=== PATIENT | female | born 1960 | race Caucasian/White ===

== ENCOUNTER 2023-09-08 07:30 | Outpatient (RCR) | payer OTHER, SELFPAY | END 2024-01-06 23:59 | disposition home or self-care (01) | PROVIDERS: PCP Family Medicine; Visit Provider Family Medicine | DX: M54.42 Lumbago with sciatica, left side (principal); M79.18 Myalgia, other site; M25.552 Pain in left hip; R26.89 Other abnormalities of gait and mobility; G47.9 Sleep disorder, unspecified; Z51.89 Encounter for other specified aftercare | CPT/HCPCS: 97110; 97162 ==

== ENCOUNTER 2024-04-13 14:41 | Inpatient (IN) | payer OTHER, SELFPAY ==
[2024-04-13] VITALS (19 sets, daily range): BP systolic 119–154; BP diastolic 53–85; PULSE 66–86; RESP 16–24; TEMP 37.1–38.7; O2SAT 88–96; BMI 57.2; BMI 25.9
--- NOTE | 2024-04-13 15:20 | CRLHL7_ITS ---
For Patients: As a result of the Cures Act, medical imaging exams and procedure reports are released immediately into your electronic medical record. You may view this report before your referring provider. If you have questions, please contact your health care provider. Indication: COUGH, SHORTNESS OF BREATH Technique: PA and lateral views of the chest. Comparison: None. Findings: Low lung volumes. Normal cardiomediastinal silhouette. No focal consolidation, pleural effusions, or visualized pneumothorax. Moderate degenerative changes of the visualized spine. Impression: No acute cardiopulmonary disease. Dictated by Nick Yao MD @ 04/13/2024 4:09:58 PM (Electronically Signed)
[2024-04-13] MEDS: ACETAMINOPHEN 500 MG TABLET 1000 MG PO (15:23)
--- NOTE | 2024-04-13 15:57 | ED_ITS ---
HPI - General Adult General Date Seen: 04/13/24 Chief complaint: Cough Stated complaint: cough, doc thinks she needs oxygen Time Seen by Provider: 04/13/24 15:55 History of Present Illness HPI narrative: 64 yo F with history of hypertension, chronic systolic CHF, morbid obesity, status post gastric bypass, hypothyroidism, colon polyp Mets, anemia, anxiety, depression, sleep apnea presents to the ER today with cough. We do not have any old records for her in the [facility] system but there are records through the [facility] care link. According to those records med list includes atorvastatin, carvedilol, vitamin B12, levothyroxine, losartan, Zoloft, spironolactone, vitamin C. She is not on any anticoagulants. She uses CPAP. She says that she has apparently had not been manage her blood pressure very well but then last fall seeing her primary who put her on blood pressure medications and referred her to a ultrasound tech in the [facility] for further cardiac testing. She apparently had an echocardiogram and some sort of scan of her heart that looked ?better than the ultrasound tech thought they would. ?. She was recommended to follow-up with her PCP for ongoing blood pressure management. She says she really does not like to go to doctors so did not make the appointment. She probably should have seen her doctor in December but now has an appointment scheduled for the end of March. Patient admits that she delay the follow-up herself. She actually developed a respiratory illness in mid to late February, the week before Pablo that include cough, nasal congestion, and purulent eye discharge. She saw an eye doctor and was put on antibiotic eyedrops for 2 weeks. That illness had gotten better. She developed a new illness that started 3 or 4 days ago, this weekend that including cough, fever and chills, shortness of breath, dyspnea on exertion. She went into her primary care office, at [facility], today and was sent here to the ER because she was found to be hypoxic. She is not normally on oxygen at home. She quit smoking 17 years ago. She has no history of lung disease or COPD. She is supposed to use CPAP at night but does not. She is not on home oxygen. She has not had any recent travel or immobilization. No so new swelling in her legs. She does have some chronic bilateral lower extremity edema that is not worse than normal lately. She is not anticoagulated. From cardiology notes from December 2023 Oxygen sat 95% room air. Blood pressure 145/82. Pulse 77. Weight 166.4 kg. PET IMPRESSION 1. Adequate pharmacologic stress test with regadenoson. 2. The pharmacologic stress ECG was nondiagnostic due to nonspecific ST-T changes at baseline. 3. Myocardial perfusion was normal. 4. Stress myocardial blood flow was abnormal at 1.9 ml/min/g and myocardial flow reserve was abnormal at 1.9. 5. Left ventricular cavity size was mildly enlarged (resting EDV 188 ml). 6. Overall left ventricular systolic function was normal without wall motion abnormalities. The resting LVEF was calculated to be 59 %. 7. Compared to prior study of 03/28/14, there is no significant change. ? ? Impression and Plan: ? #1 nonischemic cardiomyopathy #2 CHF, chronic, combined, [place] heart 2 Related Data Home Medications ?Medication ?Instructions ?Recorded ?Confirmed atorvastatin 20 mg tablet 20 mg PO DAILY 04/13/24 04/13/24 carvedilol 3.125 mg tablet 3.125 mg PO BID 04/13/24 04/13/24 carvedilol 6.25 mg tablet 6.25 mg PO BID 04/13/24 04/13/24 chlorthalidone 25 mg tablet 25 mg PO DAILY 04/13/24 04/13/24 cyanocobalamin (vitamin B-12) mcg IM 04/13/24 1,000 mcg/mL injection solution levothyroxine 150 mcg tablet 150 mcg PO DAILY 04/13/24 04/13/24 (Synthroid) lisinopril 20 mg tablet 20 mg PO DAILY 04/13/24 04/13/24 losartan 50 mg tablet 75 mg PO DAILY 04/13/24 04/13/24 sertraline 100 mg tablet 100 mg PO DAILY 04/13/24 04/13/24 spironolactone 25 mg tablet 25 mg PO DAILY 04/13/24 04/13/24 tobramycin 0.3 %-dexamethasone 0.1 drp ophthalmic (eye) 04/13/24 % eye drops,suspension Allergies Allergy/AdvReac Type Severity Reaction Status Date / Time NSAIDS (Non-Steroidal Allergy Mild Abdominal Verified 04/13/24 15:12 Anti-Inflamma Pain PFSH PFSH Social History Smoking Status: Former smoker What tobacco products do you use: cigarettes Smoking quit date/years: >15 years ago Do you use any of these nicotine containing products: None Second hand tobacco smoke exposure: No How often do you have a drink containing alcohol: never AUDIT-C Alcohol total score: 0 Non-prescribed substance use: denies use service: No Exam Narrative: Exam Narrative: Constitutional: Appears well-developed and over-nourished. Alert. Sitting up in her bedside chair. Breathing easily on nasal cannula with sats at 93. Conversant. Non toxic. HENT: Head: Atraumatic. Nose: Nose normal. Mouth/Throat: Oral mucosa is clear and moist. no trismus. Pharynx normal. Tonsils symmetric. No tonsillar enlargement, erythema, or exudate. Eyes: Conjunctivae normal. EOM normal. Pupils equal, round, and reactive to lig ht. No scleral icterus. Neck: Normal range of motion. Neck supple. No tracheal deviation present. Cardiovascular: Normal rate, regular rhythm. No gallop. No friction rub. No murmur heard. Symmetric radial artery pulses Pulmonary/Chest: Effort normal. No stridor. No respiratory distress. No wheezes. No rales. No rhonchi . No tenderness. Abdominal: Exam limited because she is sitting up and very difficult for her to reposition due to her body habitus Musculoskeletal: RUE: Normal range of motion. No tenderness. No deformity LUE: Normal range of motion. No tenderness. No deformity RLE: Normal range of motion. No edema. No tenderness. No deformity LLE: Normal range of motion. No edema. No tenderness. No deformity Neurological: Alert and oriented to person, place, and time. Normal strength. CN II-VII intact. No sensory deficit. GCS eye subscore is 4. GCS verbal subscore is 5. GCS motor subscore is 6. Normal coordination Skin: Skin is warm and dry. No rash noted. No pallor. Normal capillary refill. Psychiatric: Normal mood. Normal affect. Const: Vital Signs, click to edit/add: Vital Signs - 24 hr 04/13/24 15:06 Temperature 101.7 F H Pulse Rate [Pulse Oximeter] 85 Respiratory Rate 24 Blood Pressure [Ri ght Upper Arm] 154/72 H Pulse Oximetry 88 Oxygen Delivery Me thod Room Air Course Vital Signs Vital signs: Initial Vital Signs Temperature 101.7 F H 04/13/24 15:06 Temperature Source Temporal Artery Scan 04/13/24 15:06 Pulse Rate 85 04/13/24 15:06 Pulse Rhythm Regular 04/13/24 15:06 Respiratory Rate 24 04/13/24 15:06 Blood Pressure 154/72 H 04/13/24 15:06 Blood Pressure Mean 99 04/13/24 15:06 Blood Pressure Position Sitting 04/13/24 15:06 Pulse Oximetry 88 04/13/24 15:06 Oxygen Delivery Method Room Air 04/13/24 15:06 Vital Signs Temperature 101.7 F H 04/13/24 15:06 Pulse Rate 85 04/13/24 15:06 Respiratory Rate 24 04/13/24 15:06 Blood Pressure 154/72 H 04/13/24 15:06 Pulse Oximetry 88 04/13/24 15:06 Oxygen Delivery Method Room Air 04/13/24 15:06 Temperature 101.7 F H 04/13/24 15:06 Pulse Rate 85 04/13/24 15:06 Respiratory Rate 24 04/13/24 15:06 Blood Pressure 154/72 H 04/13/24 15:06 Pulse Oximetry 88 04/13/24 15:06 Oxygen Delivery Method Room Air 04/13/24 15:06 Medications Administered Medications: Discontinued Medications Generic Name Dose Route Start Last Admin Trade Name Aric PRN Reason Stop Dose Admin Acetaminophen 1,000 mg 04/13/24 15:16 04/13/24 15:23 Acetaminophen 500 Mg Tablet PO 04/13/24 15:17 1,000 mg ONCE ONE Administration Dexamethasone 6 mg 04/13/24 17:59 04/13/24 18:09 Dexamethasone 4 Mg/Ml Vial IV 04/13/24 18:00 6 mg ONCE ONE Administration Medical Decision Making [facility] Narrative Medical decision making narrative: Today pleasant 64-year-old female presenting to the ER today from her primary care clinic because of hypoxia. She has actually been sick with cough and body aches and fever for the past couple of days. Symptoms began on Thursday so she is currently on day 4 of illness Differential here is broad. PCR is positive for coronavirus, which is likely the source of her illness. She has had previous COVID vaccines, but did not get her booster this fall. She has never had diagnosed COVID before. Unclear where she was exposed to COVID. Possibly it when she visited the [place] last week. Suspect that her hypoxia is likely related to coronavirus and velázquez. She will require hospitalization for oxygen therapy. Fortunately sats of, nicely on nasal cannula. At this point she is not requiring high-flow, positive pressure, or endotracheal intubation. Will start on Decadron for hypoxia induced by coronavirus infection. She is on day 4 of illness. Discussed possible Paxlovid with admitting hospitalist, but at this point they feel that it is probably not beneficial or indicated. I would agree. Chest x-ray is negative for any focal consolidation to suggest a bacterial pneumonia. She is not having any new fluid retention to suggest CHF exacerbation. No recent travel or immobilization or unilateral leg swelling suggest DVT. At this point would hold off on CT scan of her lungs given very low likelihood for PE Laboratory workup shows normal white count, mild anemia with a hemoglobin 11.8. VBG shows a normal pH but a pCO2 elevated at 62 suggesting that she is probably a chronic CO2 retaining patient. Blood pressure is stable. Venous lactic is normal. No evidence for sepsis at this point. Basic metabolic profile shows normal electrolytes, normal kidney function. EKG shows no ischemia. She is having dyspnea on exertion which is likely due to COVID but not having any chest pain. Screening troponin is normal at 0.02.. Discussed with hospitalist, Mavis who graciously accepts the patient for admission to the medical floor Lab Data Labs: Lab Results 04/13/24 04/13/24 Range/Units 17:06 Unknown WBC 5.11 (4.50-11.00) K/uL RBC 4.24 (4.00-5.20) m/uL Hgb 11.8 L (12.0-16.0) gm/dL Hct 38.4 (33.0-51.0) % MCV 91 (80-100) fL MCH 28 (26-34) pg MCHC 31 L (32-36) gm/dL RDW Coeff of [place] 15.8 H (11.5-15.5) % Plt Count 132 L (140-440) K/uL Neut % (Auto) 75.5 H (42.0-72.0) % Lymph % (Auto) 12.5 L (20-44) % Wilkes % (Auto) 10.2 (0.0-11.0) % Eos % (Auto) 1.2 (0.0-7.0) % Baso % (Auto) 0.4 (0.0-3.0) % Neut # (Auto) 3.90 (1.7-7.0) K/uL Lymph # (Auto) 0.60 L (0.90-2.90) K/uL Wilkes # (Auto) 0.50 (0.00-0.90) K/UL Eos # (Auto) 0.06 (0.00-0.50) K/uL Baso # (Auto) 0.02 (0.00-0.30) K/uL Abs Immat Gran (auto) 0.01 (0.00-0.30) K/uL Imm/Tot Granulo (auto) 0.2 % VBG pH 7.371 (7.32-7.43) VBG pCO2 62 H* (40-50) mmHG VBG pO2 51.4 H (25-47) mmHG VBG HCO3 36 H (21-28) mmol/L Sodium 138 (135-149) mmol/L Potassium 3.9 (3.6-5.1) mmol/L Chloride 100 (96-114) mmol/L Carbon Dioxide 37 H (20-32) mmol/L Anion Gap 1 L (7-15) mEq/L BUN 14 (7-30) mg/dL Creatinine 0.7 (0.5-1.5) mg/dL Estimated Creat Clear 55.27 Estimated GFR 97 ml/min Glucose 95 (60-115) mg/dL Lactate 0.5 (0.5-1.9) mmol/L Calcium 8.5 (8.4-10.6) mg/dL Troponin I 0.02 (0.01-0.04) ng/mL SARS-CoV-2 (PCR) POSITIVE SARS-CoV-2 A (Negative) Influenza Type A (PCR) Negative PCR FLU A (Negative) Influenza Type B (PCR) Negative PCR FLU B (Negative) RSV (PCR) Negative PCR RSV (Negative) Imaging Data Chest x-ray: Attestation: I have reviewed the pertinent imaging results. Radiologist's impression: Impression: No acute cardiopulmonary disease. ECG Data Attestation: I personally reviewed and interpreted this ECG as follows: Interpretation: Normal sinus rhythm with marked sinus arrhythmia Rate: 74 PA: 158 QRS axis: Right axis deviation. ST segment/T wave: T-wave flattening. No ST segment elevation or depression QTc: 428 Discharge Plan Discharge Clinical Impression: COVID-19, Hypoxia Patient Disposition: Admitted As Observation
[2024-04-13 16:14] LABS: PCR FLU A Negative PCR FLU A (Negative); PCR FLU B Negative PCR FLU B (Negative); PCR RSV Negative PCR RSV (Negative); SARS PCR* POSITIVE SARS-CoV-2 (Negative)
[2024-04-13 17:19] LABS: HCO3 VBG 36 mmol/L (21-28); Lactate* 0.5 mmol/L (0.5-1.9); PO2 VBG 51.4 mmHG (25-47); pH VBG 7.371 (7.32-7.43)
[2024-04-13 17:22] LABS: Basophils Absolute Auto 0.02 K/uL (0.00-0.30); Basophils Percent Auto 0.4 % (0.0-3.0); Eosinophils Absolute Auto 0.06 K/uL (0.00-0.50); Eosinophils Percent Auto 1.2 % (0.0-7.0); Hematocrit 38.4 % (33.0-51.0); Hemoglobin* 11.8 gm/dL (12.0-16.0); Immature Granulocytes Abs Auto 0.01 K/uL (0.00-0.30); Immature Granulocytes Pct Auto 0.2 %; Lymphocytes Percent Auto 12.5 % (20-44); Mean Corpuscular HGB Conc 31 gm/dL (32-36); Mean Corpuscular Hemoglobin 28 pg (26-34); Mean Corpuscular Volume 91 fL (80-100); Monocytes Percent Auto 10.2 % (0.0-11.0); Neutrophils Percent Auto 75.5 % (42.0-72.0); Platelet Count* 132 K/uL (140-440); RDW Coefficient of Variation % 15.8 % (11.5-15.5); Red Blood Count 4.24 m/uL (4.00-5.20); White Blood Count* 5.11 K/uL (4.50-11.00)
[2024-04-13 17:38] LABS: Slide Review Reflex No
[2024-04-13 17:42] LABS: PCO2 VBG 62 mmHG (40-50)
[2024-04-13 17:56] LABS: Chloride* 100 mmol/L (96-114); Potassium* 3.9 mmol/L (3.6-5.1); Sodium* 138 mmol/L (135-149)
--- OUTSIDE RECORDS SUMMARY | 2024-04-13 17:57 | XMS_ITS | Clinical Summary ---
Author Organization [facility] Address [place], [place] [address] Care Team Providers [employer] Driver Name Role Phone CliffPatricia castro MD Primary Care Provider Allergies Active Allergy Reactions Criticality Noted Date Comments Lisinopril Cough 10/07/2023 Nsaids (Non-Steroidal Anti-Inflammatory Drug) Other - Describe In Comment Field 08/15/2008 Pt had gastric bypass surgery, should not take oral NSAIDS. Medications CENTRUM 0.4 MG-162 MG-18 MG TAB twice daily 0 8 Active CITRACAL + D ORAL Take up to 2000 mg daily in divided doses Active VITRON-C 200 mg (66 mg Iron)-125 mg Tab TAKE 2 TABLETS BY MOUTH ONCE DAILY. 60 tablet 11 2 Active CPAPIndications:OS A (obstructive sleep apnea) Heated humidifier, Humidifier chamber, Full face mask with cushion, Heated tubing, Headgear, [id number], Length of Need: 99 months,daily use 1 unit 7 Active levothyroxine (SYNTHROID) 150 mcg tabletIndications: Acquired hypothyroidism Take 1 Tablet (150 mcg) by mouth once daily. 90 Tablet 3 4 Active atorvastatin (LIPITOR) 20 mg tabletIndications: Other hyperlipidemia Take 1 Tablet (20 mg) by mouth once daily. 90 Tablet 3 4 Active sertraline (ZOLOFT) 100 mg tabletIndications: Anxiety state Take 1 Tablet (100 mg) by mouth once daily. 90 Tablet 3 4 Active spironolactone (ALDACTONE) 25 mg tabletIndications: Chronic systolic CHF (congestive heart failure) (HC) Take 1 Tablet (25 mg) by mouth once daily in the morning. 90 Tablet 3 4 Active carvediloL (COREG) 6.25 mg tabletIndications: HTN (hypertension) Take 1 Tablet (6.25 mg) by mouth two times daily. 90 Tablet 3 4 Active losartan (COZAAR) 50 mg tabletIndications: HTN (hypertension),Chr onic systolic CHF (congestive heart failure) (HC) Take 1.5 Tablets (75 mg) by mouth once daily. 90 Tablet 3 4 Active cyanocobalamin (VITAMIN B12) 1,000 mcg/mL injectionIndicatio ns:S/P gastric bypass INJECT 1 ML UNDER THE SKIN EVERY 4 WEEKS (MONTHLY) 3 mL 1 4 Active Hospital, Clinic, or Other Facility Administered Medication Ordered Dose Route Frequency Start Date End Date Status cyanocobalamin (VITAMIN B12) 1,000 mcg/mL injection 1,000 mcgIndications:B12 deficiency 1000 mcg IM Q 4 WEEKS (28 days) 06/08/2020 Active Active Problems Problem Noted Date Diagnosed Date HTN (hypertension) 01/05/2024 Chronic systolic CHF (congestive heart failure) 01/05/2024 Anterior dislocation of left shoulder 12/21/2020 Traumatic rotator cuff tear, left, subsequent en counter 12/21/2020 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, 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 Hyperplastic colon polyp 04/19/2012 Overview (04/19/2012): Colonoscopy 03/2012 polyp repeat in 10 years S/P gastric bypass 09/25/2008 Iron deficiency anemia secon gudelia to inadequate dietary iron intake 08/10/2007 Unspecified sleep apnea 07/16/2006 Overview (07/16/2006): uses [id number] Anxiety state, unspecified 07/16/2006 Morbid obesity with BMI of 50.0-59.9, adult 06/28 Major depressive disorder, recurrent episode, un specified Hypothyroidism Resolved Problems Problem Noted Date Diagnosed Date Resolved Date Depressive disorder, not elsewhere classified 07/17/19 07 08/09/2007 abnormal pap 07/16/2006 08/07/2006 Overview (07/16/2006): abnormal papsmear had cryo Encounters Date Type Department Care Team Description 04/13/2024 1:50 PM WATER [employer]ER Office Visit [facility] [address] [place] [address] Mat Dumont MD URI (cough, congestion); Shortness Of Breath 04/13/2024 Travel 03/07/2024 Refill [facility] [address] [place] [address] Patricia Coronado MD Refill Request (Cyanocobalamin) from Last 3 Months Immunizations Name Administration Dates Next Due COVID-19 vaccine (Moderna 100mcg/0.5mL) SHASHANK GROVES 08/28/2020 COVID-19 vaccine (Pfizer-Bio NTech 30mcg/0.3mL) 12YO+ MARTITA-SUCROSE SHASHANK GROVES 09/02/2021 Influenza, IIV3 (Age >=3 years) 03/07/2013 Influenza, IIV4 04/28/2019, 8,04/09/2015,2013 Pneumococcal Conj 20-valent (Prevnar 20) 09/17/2023 Td (Age >=7 Years) 12/16/1995 Td, Preservative Free (age > = 7 Years) 04/09/2015 Tdap 10/27/2005 Zoster (Shingrix-RZV, recombinant) 06/08/2020, Family History Medical History Relation Name Comments Rectal cancer Father Cancer-breast Maternal Grandmother age 60 Hypertension Mother Diabetes Other none Heart Disease Paternal Grandfather age 76 Relation Name Status Comments Brother Alive x3 Daughter (Age at ) Father Maternal Grandmother Mother Alive Other Paternal Grandfather Sister Alive x2 Son Alive x2 Social History Tobacco Use Types Packs/Day Years Used Date Smoking Tobacco: Former Cigarettes 1 25 1 04/16/1980 - 02/14/2006 Smokeless Tobacco: Never Tobacco Cessation:Counseling Given: Yes Alcohol Use Standard Drinks/Week Comments No 0 (1 standard drink = 0.6 oz pur e alcohol) PHQ-2 Answer Date Recorded PHQ-2 TOTAL SCORE 2 07/17/2023 Social Connections Answer Date Recorded Do you often feel lonely or isolated from those around you? 0 07/17/2023 Financial Resource Strain Answer Date R ecorded Difficulty of Paying Living Expenses 3 07/17/2023 Difficulty of Paying Living Expenses Not on file 07/17/2023 Food Insecurity Answer Date Recorded Do you worry your food will run out before you are able to buy more? 1 07/17/2023 Transportation Needs Answer Date Record ed Does lack of transportation keep you from medica l appointments? 1 07/17/2023 Does lack of transportation keep you from work, meetings or getting things that you need? 1 07/17/2023 Housing Stability Answer Date Recorded What is your housing situation today? 1 07/17/2023 Utilities Answer Date Recorded Do you have trouble paying f or utilities (for example, heat, electricity, water, phone)? 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 Not on file Not on file Obstetrics History Last Filed Vital Signs Vital Sign Reading Time Taken Comments Blood Pressure 176/84 04/13/2024 1:56 PM WATER HAULER Pulse 87 04/13/2024 1:49 PM WATER HA[employer]ER Temperature 36.5 C (97.7 F) 03/01/2018 8:58 AM WATER HAULER Respiratory Rate 14 04/12/2014 2:18 PM WATER HAULER Oxygen Saturation 86% 04/13/2024 1:56 PM WATER HA[employer]ER Inhaled Oxygen Concentration - - Weight 165.9 kg (365 lb 11.2 oz) 04/13/2024 1:49 PM WATER HAULER Height 167.6 cm (5' 6) 07/17/2023 2:57 PM CDT Body Mass Index 59.03 07/17/2023 2:57 PM CDT Plan of Treatment Upcoming Encounters Date Type Department Care Team (Late st Contact Info) Description 04/25/2024 12:10 PM WATER HAULER Office Visit [facility] [address] [place] [address] Patricia Coronado MD [address] [place] [address] Health Maintenance Due Date Last Done Comments RSV vaccine for adults or (1 - Risk 60-74 years 1-dose series) 2020 Colonoscopy through age 75 04/16/202204/16, 04/16/2012, 04/16/2012 COVID-19 vaccine series ( season) 2023 09/02/2021, 09/25/2020, 08/28/2020 Influenza for age 50-64 11/29/2023 04/28/19, 03/01/2018, 04/09/2015, Additional history exists BMI (ht and wt on same day) for age 18+ 07/16/2024 07/17/2023, 09/02/2021, 02/11/2021, Additional history exists Depression screening for age 12+ 07/16/2024 07/17/2023, 09/02/2021, 06/08/2020, Additional history exists Mammogram for age 45-75 07/20/2024 07/21/19 24, 10/03/2021, 06/08/2020, Additional history exists Tetanus booster 04/09/2025 04/09/2015, 09/29, 12/16/1995 Pap test for age 21-65 06/08/2025 , 06/08/2020, 04/09/2015, Additional history exists Lipids for age 45-75 07/16/2028 07/17/2023, 09/02/2021, 06/08/2020, Additional history exists Tdap Completed 10/27/2005 HIV for age 15-65 Completed 08/11/2006 Hepatitis C screening for ag e 18-79 Completed 03/10/2014, 08/11/2006 Zoster (shingles) series for age 50+ Completed 06/08/2020, 04/28/2019 Pneumococcal series for age 50+ Completed 4 Medical Devices Implanted Type Area Epic Director Device Identifier Shelf Expiration Date Model / Serial / Lot [id number] 2x12mm [[id number]] Implanted:Qty: 1 on 08/11/[address] [facility] Explanted:at [facility] (Quantity not on file) Stomach [employer] [id number]# / [id number] / Procedures Procedure Name Priority Date/Time Associated Diagnosis Comments XR MAMMO BILAT SCREENING Routine 07/21/2023 7:45 AM CDT Visit for screening mammogram LIPID PANEL W REFLEX MEASURED LDL Routine 07/17/2023 3:40 PM CDT Other hyperlipidemia BISCUIT MAKER THIN PREP PAP SCREEN IMAGED Routine 06/08/2020 8:15 AM WATER [employer]ULER Screening for cervical cancer ANTI HCV Routine 03/10/2014 8:53 AM WATER HAULER Need for hepatitis C screening test EXPOSURE (BBF) RAPID HIV STAT 08/11/2006 9:58 AM CDT from Last 3 Months or Most Recently Relevant to Health Maintenance Results * XR MAMMO BILAT SCREENING (07/21/2023 7:45 AM CDT) Anatomical Region Laterality Modality BREASTS, Breast Left, Breast Right Bilateral Mammography Impressions 07/21/2023 1:53 PM CDT There is no radiographic evidence for malignancy. Recommend annual mammograms. MAMMOGRAM ASSESSMENT: ACR 1 Negative PATIENTS: You will also receive a letter with your examination results in an easy to read format. If you have questions about your results, please contact your referring provider. Narrative 07/21/2023 1:53 PM CDT For Patients: As a result of the 21st Century Cures Act, medical imaging exams and procedure reports are released immediately into your electronic medical record. You may view this report before your referring provider. If you have questions, please contact your health care provider. XR MAMMO BILAT SCREENING [[id number]] CLINICAL HISTORY: This is an asymptomatic 63 y.o. patient. INDICATION FOR EXAM: Mammogram Screening. TECHNIQUE: CC & MLO views were obtained. This study was evaluated with the assistance of Computer-Aided Detection. COMPARISON FILM: Yes 10/03/21 [facility] 06/08/20 [facility] FINDINGS: The breasts have scattered areas of fibroglandular density. There are no dominant masses, suspicious micro calcifications or areas of architectural distortion. Patricia Coronado MD MAMMO Final R esult * LIPID PANEL W REFLEX MEASURED LDL (07/17/2023 3:40 PM CDT) CHOLESTEROL,TOTAL 189 100 - 199 mg/dL 07/17/2023 9:05 PM CDT [facility] Comment: Cholesterol, Total Reference Ranges Desirable <200 mg/dL Borderline 200-239 mg/dL High >=240 mg/dL TRIGLYCERIDES 104 <150 mg/dL 07/17/2023 9:05 PM CDT [facility] HDL CHOLESTEROL 67 >40 mg/dL 9:05 PM CDT [facility] NON-HDL CHOLESTEROL 122 <145 mg/dl 07/17/2023 9:05 PM CDT [facility] CHOL/HDL RATIO 2.82 <4.50 07/17/2023 9:05 PM CDT [facility] LDL CHOLESTEROL 101 <=130 mg/dL 07/17/2023 9:05 PM CDT [facility] VLDL CHOLESTEROL 21 <=30 mg/dL 07/17/2023 9:05 PM CDT [facility] PROVIDER ORDERED STATUS RANDOM 07/17/2023 9:05 PM CDT [facility] Blood BLOOD SPECIMEN / Unknown Venipuncture / Unknown 07/17/2023 3:40 PM CDT 07/17/2023 3:41 PM CDT Patricia Coronado MD CHEMISTRY Final R esult [facility] [address] [place] [address], [place] * BISCUIT MAKER THIN PREP PAP SCREEN IMAGED [[id number]] (06/08/2020 8:15 AM WATER HAULER) Case Report Gynecologic Cytology Report Case: [id number] Authorizing Provider: Patricia Coronado MD Collected: 06/08/2020 0815 Ordering Location: [facility] Received: 06/08/2020 0852 Clinic First Screen: [place] Specimen: BISCUIT MAKER ThinPrep Vial Screening, Cervical 06/19/2020 8:28 AM CDT [facility] INTERPRETATION/ RESULT NEGATIVE FOR INTRAEPITHELIAL LESION OR MALIGNANCY (NIL) (none) 06/19/2020 8:28 AM CDT [facility] IMEN ADEQUACY Satisfactory for evaluation Endocervical component present 06/19/2020 8:28 AM CDT [facility] HPV REQUEST HPV and PAP 06/19/2020 8:28 AM CDT [facility] Date of LMP 201306/19/2020 8:28 AM CDT [facility] Last Pap Date 04/09/15 06/19/2020 8:28 AM CDT [facility] Last Pap Result NIL 8:28 AM CDT [facility] Abnormal Pap or [place] Bx in last 5 years No 06/19/2020 8:28 AM CDT [facility] Menstrual Status Postmenopausal 06/19/2020 8:28 AM CDT [facility] [place] Bx Done Today No 06/19/2020 8:28 AM CDT [facility] Additional Information None given 06/19/2020 8:28 AM CDT [facility] Comment: Cytology is screened at [facility] [email or web address], Central Laboratory - [address], [place] [address] and [facility] - [address] [place] [address] and [facility] - [address], [place] [address] Interpreted at [facility] [email or web address], Central Laboratory - [address], [place] [address] Automated Review Successful 06/19/2020 8:28 AM CDT [facility] Comment:Specimen processed s uccessfully by automated claim auditor device, ThinPrep Imaging System, [employer] ANCILLARY TESTING BISCUIT MAKER HPV Ordered, Please see separate report 06/19/2020 8:28 AM CDT [facility] Note The pap test is a screening technique, not a diagnostic procedure. It is used primarily to screen for squamous cancers and precursor lesions. Published studies have shown that it is subject to both false negative and false positive results. The pap test should not be used as the sole means to diagnose or exclude pre-malignant and malignant lesions. 06/19/2020 8:28 AM CDT [facility] Other (Cervical) Non-Blood / Unknown 06/08/2020 8:15 AM WATER [employer]ULER 06/08/2020 8:52 AM WATER HAULER us Patricia Coronado MD PATHOLOGY/CYTOLOGY Peace l Result Performing Organization Address City/[facility]/ZIP Co de Phone Number [facility] [address] [place] [address], [place] * ANTI HCV [[id number]] (03/10/2014 8:53 AM WATER HAULER) Pathologist [facility] HEPATITIS C ANTIBODY Non-Reacti ve Non-Reacti ve 03/10/2014 1:50 PM WATER HAULER [facility] Blood specimen (specimen) BLOOD SPECIMEN / Unknown Venipuncture / Unknown 03/10/2014 8:53 AM WATER [employer]ULER 03/10/2014 8:53 AM WATER HAULER Narrative [facility] - 03/10/2014 1:50 PM WATER HAULER Antibodies to HCV not detected; does not exclude the possibility of exposure to HCV. us Patricia Coronado MD SEND OUTS Final R esult [facility] [address] [place] [address], [place] * PATIENT SOURCE RAPID HIV (08/11/2006 9:58 AM CDT) SOURCE RAPID HIV SCREEN Nonreactive (Nonreact mayank) [facility] Blood specimen (specimen) BLOOD SPECIMEN / Unknown 08/11/2006 9:58 AM CDT 08/11/2006 8:37 AM CDT us Dallin Márquez MD SEND OUTS Final Res ult [facility] [place]NAL ZIP [id number] [address] from Last 3 Months or Most Recently Relevant to Health Maintenance Insurance [facility] Advance Directives Documents on File Type Date Recorded Patient Hydraulic Press Tender Expl anation Healthcare Directive 08/14/2006 * Full Code (Latest Code Status on File) Date Activated Date Inactivated Comments 08/11/2006 5:35 AM 08/12/2006 4:44 PM Care Teams [employer] Driver Relationship Specialty Start Date End Date Patricia Coronado MD [address] [place] [id number] PCP - General Family Practice 11/05/10
[2024-04-13 17:59] LABS: Anion Gap 1 mEq/L (7-15); Blood Urea Nitrogen* 14 mg/dL (7-30); Carbon Dioxide* 37 mmol/L (20-32); Creatinine* 0.7 mg/dL (0.5-1.5); Est. Creatinine Clearance* 55.27; Estimated Glomerular Filt Rate 97 ml/min
[2024-04-13 18:00] LABS: Calcium* 8.5 mg/dL (8.4-10.6); Glucose* 95 mg/dL (60-115)
[2024-04-13] MEDS: dexAMETHasone 4 MG/ML VIAL 6 MG IV (18:09)
[2024-04-13 18:11] LABS: Troponin I* 0.02 ng/mL (0.01-0.04)
[2024-04-13 19:32] LABS: Albumin* 3.8 g/dL (3.3-5.0)
--- NOTE | 2024-04-13 19:33 | PC.NURSE ---
Performed admission: Patient arrived to floor at 1846. Patient vitally stable on 1.5 L oxygen nasal cannula with sats in low 90s. Patient denies pain and independent in room. No physical assessment performed, handed off to next RN.
[2024-04-13 19:35] LABS: Aspartate Amino Transferase* 22 U/L (12-35); Bilirubin Direct* 0.2 mg/dL (0.0-0.5); Bilirubin Total* 0.4 mg/dL (0.1-1.5); Magnesium* 2.3 mg/dL (1.5-2.6); Total Protein* 6.5 g/dL (6.0-8.3)
[2024-04-13 19:36] LABS: Alanine Aminotransferase* 15 U/L (4-35); Alkaline Phosphatase* 76 U/L (40-150)
[2024-04-13 19:38] LABS: C Reactive Protein* 2.6 mg/dL (0.5-1.0)
--- NOTE | 2024-04-13 19:44 | PM.IMHP1 ---
Hospitalist- H&P: HPI History of Present Illness Date Seen: 04/13/24 Chief complaint: cough, doc thinks she needs oxygen Narrative: Sarah Chadwick is a 64 year old female past medical history significant for obesity, nonischemic cardiomyopathy, chronic systolic heart failure, dyspnea on exertion, hypothyroidism, iron deficiency anemia, anxiety, depression is admitted to the medical floor from the ED with acute hypoxic respiratory failure with hypercapnia in setting of acute COVID infection. Patient reports symptom onset 3 days ago. Has had a dry cough. Denies chest pain or tightness. Increasing shortness of breath. Chronically has some level of dyspnea on exertion which he has noticed to worsened. Is not oxygen dependent at home. Does have a history of sleep apnea but has not tolerated CPAP in the past. Uses a walker when walking around the home. Denies headache or dizziness currently. Fever up to 101.3? today. Denies abdominal pain, nausea, vomiting. Has irregular bowels, unchanged. Denies urinary symptoms. Primary care provider is Dr. Annika Coronado. Patient is a full code. Review of Systems Narrative: REVIEW OF SYSTEMS: Complete review of systems performed and negative unless otherwise stated in HPI or below. [facility] Medical History (Updated 04/13/24 @ 20:12 by Blanca Bettencourt PA-C) Combined systolic and diastolic heart failure, NYHA class 2 ?I50.40 - Unspecified combined systolic (congestive) and diastolic (congestive) heart failure (ICD-10) Nonischemic cardiomyopathy ?I42.8 - Other cardiomyopathies (ICD-10) Sleep apnea ?G47.30 - Sleep apnea, unspecified (ICD-10) Major depressive disorder ?F32.9 - Major depressive disorder, single episode, unspecified (ICD-10) Anxiety ?F41.9 - Anxiety disorder, unspecified (ICD-10) Iron deficiency anemia ?D50.9 - Iron deficiency anemia, unspecified (ICD-10) Hypothyroidism ?E03.9 - Hypothyroidism, unspecified (ICD-10) Morbid obesity with body mass index of 50 or higher ?E66.01 - Morbid (severe) obesity due to excess calories (ICD-10) Chronic systolic heart failure ?I50.22 - Chronic systolic (congestive) heart failure (ICD-10) Hypertension ?I10 - Essential (primary) hypertension (ICD-10) Surgical History History of gastric bypass ?Z98.84 - Bariatric surgery status (ICD-10) Social History What is your current living situation?: I presently have a place to live Problems where you live: no known problems Problems where you live details: none In the past 12 months, utilities in danger of being shut off: no In past 12 months, lack of transportation kept you from medical appts, meetings, work, or getting things needed for daily living: no In the past 12 mos, have been you worried that your food would run out before you had money to buy more?: never true In the past 12 mos, the food you bought just didn't last and you didn't have money to buy more?: never true Highest level of school completed/degree received: high school graduate Smoking Status: Former smoker What tobacco products do you use: cigarettes Smoking quit date/years: >15 years ago Do you use any of these nicotine containing products: None Second hand tobacco smoke exposure: No How often do you have a drink containing alcohol: never AUDIT-C Alcohol total score: 0 Non-prescribed substance use: denies use Caffeine: Yes How often does anyone, including family, friends and others, physically hurt you: never How often does anyone, including family, friends and others, insult or talk down to you: never How often does anyone, including family, friends and others, threaten you with harm: never How often does anyone, including family, friends and others, scream or curse at you: never service: No Meds Home Medications and Allergies Home Medications ?Medication ?Instructions ?Recorded ?Confirmed ?Type atorvastatin 20 mg tablet 20 mg PO DAILY 04/13/24 04/13/24 History carvedilol 3.125 mg tablet 3.125 mg PO BID 04/13/24 04/13/24 History carvedilol 6.25 mg tablet 6.25 mg PO BID 04/13/24 04/13/24 History chlorthalidone 25 mg tablet 25 mg PO DAILY 04/13/24 04/13/24 History cyanocobalamin (vitamin B-12) mcg IM 04/13/24 History 1,000 mcg/mL injection solution levothyroxine 150 mcg tablet 150 mcg PO DAILY 04/13/24 04/13/24 History (Synthroid) lisinopril 20 mg tablet 20 mg PO DAILY 04/13/24 04/13/24 History losartan 50 mg tablet 75 mg PO DAILY 04/13/24 04/13/24 History sertraline 100 mg tablet 100 mg PO DAILY 04/13/24 04/13/24 History spironolactone 25 mg tablet 25 mg PO DAILY 04/13/24 04/13/24 History tobramycin 0.3 %-dexamethasone 0.1 drp ophthalmic (eye) 04/13/24 History % eye drops,suspension Allergies Allergy/AdvReac Type Severity Reaction Status Date / Time NSAIDS (Non-Steroidal Allergy Mild Abdominal Verified 04/13/24 15:12 Anti-Inflamma Pain Exam Narrative: Exam Narrative: PHYSICAL EXAM General: Pleasant, conversant, NAD HEENT: Normocephalic, atraumatic, sclera white, EOMI, oral mucosa moist Cardiovascular: RRR, S1S2. +1 pitting edema Pulmonary: Mildly diminished bilaterally without rhonchi, rales, expiratory wheezes. No dyspnea on 1 L Abdominal: Soft, obese, nondistended, NTTP Neurological: Alert, answering questions appropriately, cranial nerves intact, no focal findings Extremities: No gross joint deformity or swelling. AROMI. Neurovascularly intact Skin: Warm, dry. Const: Vital Signs, click to edit/add: Vital Signs - 24 hr 04/13/24 15:06 04/13/24 16:30 04/13/24 16:31 Temperature 101.7 F H Pulse Rate 81 80 Pulse Rate [Pulse Oximeter] 85 Respiratory Rate 24 Blood Pressure 136/68 Blood Pressure [Le ft FA] Blood Pressure [Ri ght Upper Arm] 154/72 H Pulse Oximetry 88 92 93 Oxygen Delivery Me thod Room Air Oxygen Flow Rate 04/13/24 16:45 04/13/24 17:00 04/13/24 17:02 Temperature Pulse Rate 75 74 73 Pulse Rate [Pulse Oximeter] Respiratory Rate Blood Pressure 128/72 Blood Pressure [Le ft FA] Blood Pressure [Ri ght Upper Arm] Pulse Oximetry 95 95 96 Oxygen Delivery Me thod Oxygen Flow Rate 04/13/24 17:15 04/13/24 17:30 04/13/24 17:31 Temperature Pulse Rate 72 73 73 Pulse Rate [Pulse Oximeter] Respiratory Rate Blood Pressure 119/71 Blood Pressure [Le ft FA] Blood Pressure [Ri ght Upper Arm] Pulse Oximetry 94 94 95 Oxygen Delivery Me thod Oxygen Flow Rate 04/13/24 17:46 04/13/24 18:00 04/13/24 18:01 Temperature Pulse Rate 66 77 81 Pulse Rate [Pulse Oximeter] Respiratory Rate Blood Pressure 125/79 Blood Pressure [Le ft FA] Blood Pressure [Ri ght Upper Arm] Pulse Oximetry 95 96 94 Oxygen Delivery Me thod Oxygen Flow Rate 04/13/24 18:15 04/13/24 18:30 04/13/24 18:31 Temperature Pulse Rate 70 78 86 Pulse Rate [Pulse Oximeter] Respiratory Rate Blood Pressure 128/85 Blood Pressure [Le ft FA] Blood Pressure [Ri ght Upper Arm] Pulse Oximetry 96 94 91 Oxygen Delivery Me thod Oxygen Flow Rate 04/13/24 18:51 04/13/24 19:01 04/13/24 19:01 Temperature 98.9 F Pulse Rate Pulse Rate [Pulse Oximeter] 68 Respiratory Rate 16 Blood Pressure Blood Pressure [Le ft FA] 131/69 Blood Pressure [Ri ght Upper Arm] Pulse Oximetry 90 90 90 Oxygen Delivery Me thod Room Air Nasal Cannula Oxygen Flow Rate 1 Hospitalist - H&P: Result Labs Labs: Short CBC 04/13/24 Range/Units 17:06 WBC 5.11 (4.50-11.00) K/uL Hgb 11.8 L (12.0-16.0) gm/dL Hct 38.4 (33.0-51.0) % Plt Count 132 L (140-440) K/uL BMP 04/13/24 17:06 Sodium 138 Potassium 3.9 Chloride 100 Carbon Dioxide 37 H BUN 14 Creatinine 0.7 Glucose 95 Calcium 8.5 Cardiac Enzymes 04/13/24 Range/Units 17:06 Troponin I 0.02 (0.01-0.04) ng/mL Liver Function 04/13/24 Range/Units 17:06 Total Bilirubin 0.4 (0.1-1.5) mg/dL Direct Bilirubin 0.2 (0.0-0.5) mg/dL AST 22 (12-35) U/L ALT 15 (4-35) U/L Alkaline Phosphatase 76 (40-150) U/L Albumin 3.8 (3.3-5.0) g/dL Imaging Chest x-ray: Attestation: I have reviewed the pertinent imaging results. Radiologist's impression: Low lung volumes. Normal cardiomediastinal silhouette. No focal consolidation, pleural effusions, or visualized pneumothorax. Moderate degenerative changes of the visualized spine. Impression: No acute cardiopulmonary disease. Assessment and Plan Assessment and plan (1) Acute hypoxic respiratory failure: Problem comment: -with hypercapnia -oxygen saturation 88% on room air in ED -in setting of acute COVID infection, obesity, history of dyspnea on exertion, combined heart failure, suspect likely some level of CO2 retainer historically -VBG pH 7.371, pCO2 62, PO2 51, HC03 36. Serum CO2 chronically 33-36. Recheck VBG in a.m. -oxygen supplementation to maintain saturations > 90%, weaning as able -incentive spirometry, aerobika -RT for pulmonary support Status: Acute (2) COVID-19: Problem comment: -symptomatic 3 days, dry cough, fever 101.3 today, weakness -hypoxic, requiring O2 supplementation -no leukocytosis, lactate 0.5, Mag 2.3 -dexamethasone and remdesivir (LFTs unremarkable), Mucinex -RT for pulmonary support -PT/OT consults for weakness Status: Acute (3) Combined systolic and diastolic heart failure, NYHA class 2: Problem comment: Chronic, combined, [place] heart 2 per cardiology -continue spironolactone -add BNP -will give one time dose Lasix 40mg IV now. Reassess if need for further IV diuresis. 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 Adequate pharmacologic stress test with regadenoson. 2. The pharmacologic stress ECG was nondiagnostic due to nonspecific ST-T changes at baseline. 3. Myocardial perfusion was normal. 4. Stress myocardial blood flow was abnormal at 1.9 ml/min/g and myocardial flow reserve was abnormal at 1.9. 5. Left ventricular cavity size was mildly enlarged (resting EDV 188 ml). 6. Overall left ventricular systolic function was normal without wall motion abnormalities. The resting LVEF was calculated to be 59 %. 7. Compared to prior study of 03/28/14, there is no significant change. TTE 08/19/2023 Final Impressions: 1. Technically limited exam. 2. Normal left ventricular size, mildly increased wall thickness, mildly reduced global systolic function, calculated EF of 41 %. 3. Right ventricular cavity size is normal, global systolic RV function is normal. 4. No hemodynamically significant valve disease detected. 5. The ascending aorta is dilated with a maximal diameter of 4.2 cm. 6. Echo contrast was administered to enhance visualization of all left ventricular segments. Followed by [facility] Status: Acute (4) Nonischemic cardiomyopathy: Problem comment: -echo as above, followed by [facility] Status: Acute (5) Hypertension: Problem comment: -continue carvedilol and Cozaar Status: Acute (6) Hypothyroidism: Problem comment: -continue levothyroxine, previous TSH 2.6 Status: Acute (7) Iron deficiency anemia: Problem comment: -hemoglobin 11.8, baseline 12.3-13.2, monitor Status: Acute (8) Anxiety: Problem comment: -continue Zoloft Status: Acute (9) Major depressive disorder: Problem comment: -continue Zoloft Status: Acute (10) Sleep apnea: Problem comment: -does not tolerate CPAP Status: Acute (11) Morbid obesity with body mass index of 50 or higher: Problem comment: -noted Status: Acute Total Time Spent Total Time Spent: Total time spent caring for the patient today was 75 minutes. This includes time spent for the visit reviewing the chart, time spent during the visit, time spent after the visit and documentation and planning in coordination of care.
[2024-04-13 20:55] LABS: NT Pro B Type NatriureticPept* 167 pg/mL
[2024-04-13] MEDS: FUROSEMIDE 10 MG/ML inj 40 MG IVP (20:59)
[2024-04-13] MEDS: SODIUM CHLORIDE 0.9 % (FLUSH) 10 ML SYRINGE 5 ML IVF (21:00)
[2024-04-13] MEDS: ENOXAPARIN 40 MG/0.4 ML INJ SUBCUT (21:47)
[2024-04-13] MEDS: carvediloL 6.25 MG TABLET PO (21:48)
[2024-04-13] MEDS: ATORVASTATIN 10 MG TABLET 20 MG PO (21:48)
[2024-04-13] MEDS: guaiFENesin 600 MG TAB.ER.12H 1200 MG PO (21:48)
[2024-04-13] MEDS: SPIRONOLACTONE 25 MG TABLET PO (21:49)
[2024-04-13] MEDS: SERTRALINE 100 MG TABLET PO (21:49)
[2024-04-13] MEDS: LOSARTAN POTASSIUM 50 MG TABLET 75 MG PO (21:49)
[2024-04-14] VITALS (9 sets, daily range): BP systolic 133–170; BP diastolic 53–94; PULSE 62–76; RESP 16–20; TEMP 36.6–36.9; O2SAT 88–97
[2024-04-14 06:34] LABS: HCO3 VBG 41 mmol/L (21-28); PO2 VBG < 30.1 mmHG (25-47); pH VBG 7.345 (7.32-7.43)
[2024-04-14 06:41] LABS: PCO2 VBG 76 mmHG (40-50)
[2024-04-14 06:44] LABS: Hematocrit 40.4 % (33.0-51.0); Hemoglobin* 12.2 gm/dL (12.0-16.0); Mean Corpuscular HGB Conc 30 gm/dL (32-36); Mean Corpuscular Hemoglobin 28 pg (26-34); Mean Corpuscular Volume 92 fL (80-100); Platelet Count* 127 K/uL (140-440); White Blood Count* 4.16 K/uL (4.50-11.00)
[2024-04-14 06:47] LABS: Slide Review Reflex No
[2024-04-14] MEDS: LEVOTHYROXINE 75 MCG TABLET 150 MCG PO (06:51)
[2024-04-14] MEDS: ALBUTEROL SULFATE 2.5 MG/3 ML VIAL.NEB NEB (06:53)
[2024-04-14 07:07] LABS: Chloride* 98 mmol/L (96-114); Potassium* 4.8 mmol/L (3.6-5.1); Sodium* 141 mmol/L (135-149)
[2024-04-14 07:10] LABS: Blood Urea Nitrogen* 16 mg/dL (7-30); Creatinine* 0.9 mg/dL (0.5-1.5); Est. Creatinine Clearance* 55.27; Estimated Glomerular Filt Rate 71 ml/min
[2024-04-14 07:11] LABS: Calcium* 8.7 mg/dL (8.4-10.6); Glucose* 111 mg/dL (60-115)
[2024-04-14 07:13] LABS: C Reactive Protein* 4.1 mg/dL (0.5-1.0)
[2024-04-14 07:17] LABS: Anion Gap 3 mEq/L (7-15); Carbon Dioxide* 40 mmol/L (20-32)
--- NOTE | 2024-04-14 07:34 | PC.NURSE ---
Pt alert and oriented x3. Afebrile. Pt denies pain, chest pain, SOB, and N/V. Pt was on 1L via nasal cannula at start of shift, titrated O2 down to 0.5 pt maintaining 90% and higher. Pt using IS, has PRN nebs. Pt's posterior lung sounds are diminished with expiatory wheezes. Pt has dry intermittent cough. Pt is up ad pretty in room, voiding, tolerating a regular diet.
[2024-04-14] MEDS: dexAMETHasone 2 MG TABLET 6 MG PO (09:21)
[2024-04-14] MEDS: guaiFENesin 600 MG TAB.ER.12H 1200 MG PO ×2 (09:21→21:45)
[2024-04-14] MEDS: carvediloL 6.25 MG TABLET PO ×2 (09:21→21:44)
[2024-04-14] MEDS: 0.9 % SODIUM CHLORIDE 250 ml IV (10:18)
[2024-04-14] MEDS: SODIUM CHLORIDE 0.9 % (FLUSH) 10 ML SYRINGE 5 ML IVF ×2 (10:19→21:46)
--- NOTE | 2024-04-14 11:01 | P.IMPN_ITS ---
Progress Note: A&P Assessment and plan (1) Acute hypoxic respiratory failure: Problem details: -in setting of acute COVID infection, obesity, HFpEF, untreated AURY -CO2 remains elevated, appreciate input from RT, continue to follow VBGs -oxygen supplementation, monitor closely given CO2 retention -incentive spirometry, aerobika -RT for pulmonary support Status: Acute (2) COVID-19: Problem details: -symptomatic for 3days prior to admission, dry cough, fever 101.3 today, weakness -no leukocytosis, lactate 0.5, Mag 2.3 -COVID-specific therapies: dexamethasone and remdesivir (LFTs unremarkable), Mucinex -RT for pulmonary support -PT/OT consults for weakness Status: Acute (3) Combined systolic and diastolic heart failure, NYHA class 2: Problem details: - Chronic, combined, [place] heart 2 per cardiology - continue spironolactone, Losartan, Carvedilol - BNP wnl - given one time dose Lasix 40mg IV on admission PET 12/08/2023 IMPRESSION 1. Adequate pharmacologic stress test with regadenoson. 2. The pharmacologic stress ECG was nondiagnostic due to nonspecific ST-T changes at baseline. 3. Myocardial perfusion was normal. 4. Stress myocardial blood flow was abnormal at 1.9 ml/min/g and myocardial flow reserve was abnormal at 1.9. 5. Left ventricular cavity size was mildly enlarged (resting EDV 188 ml). 6. Overall left ventricular systolic function was normal without wall motion abnormalities. The resting LVEF was calculated to be 59 %. 7. Compared to prior study of 03/28/14, there is no significant change. TTE 08/19/2023 Final Impressions: 1. Technically limited exam. 2. Normal left ventricular size, mildly increased wall thickness, mildly reduced global systolic function, calculated EF of 41 %. 3. Right ventricular cavity size is normal, global systolic RV function is normal. 4. No hemodynamically significant valve disease detected. 5. The ascending aorta is dilated with a maximal diameter of 4.2 cm. 6. Echo contrast was administered to enhance visualization of all left ventricular segments. Followed by [facility] Status: Acute (4) Hypertension: Problem details: -continue carvedilol and Cozaar Status: Acute (5) Hypothyroidism: Problem details: -continue levothyroxine, previous TSH 2.6 Status: Acute (6) Iron deficiency anemia: Problem details: -hemoglobin 11.8, baseline 12.3-13.2, monitor Status: Acute (7) Major depressive disorder: Problem details: -continue Zoloft Status: Acute (8) Sleep apnea: Problem details: -does not tolerate CPAP Status: Acute (9) Morbid obesity with body mass index of 50 or higher: Problem details: -noted Status: Acute Plan -per above -RT, OT, and PT consults today -wean supplemental oxygen -home vs SNF in 1-2 days pending clinical course Subjective Date Seen: 04/14/24 Interval history: Sarah was admitted to the hospital last night for acute hypoxic respiratory failure and fever in the setting of acute COVID infection. Comorbidities included untreated AURY (intolerant of CPAP), HFpEF, essential HTN. This morning, Sarah continues to feel weak and dyspneic with exertion, no pain. Amenable to working with RT, PT, and OT today. Lives independently with in [place]. Exam Narrative: Exam Narrative: GEN: Sarah is sitting in bedside chair, appears tired but nontoxic HEENT: EOMIs bilaterally, no scleral icterus CV: RRR, No concerning murmurs R: Decreased bibasilar breath sounds, no wheezing, no rales Ext: 1-2+ BLE edema, chronic/stable per chart review Skin: No concerning skin lesions or rashes on exposed skin Neuro: No focal deficits, no resting tremor Psych: Appropriate Const: Vital Signs, click to edit/add: Vital Signs - 24 hr 04/13/24 15:06 04/13/24 16:30 04/13/24 16:31 Temperature 101.7 F H Pulse Rate 81 80 Pulse Rate [Pulse Oximeter] 85 Respiratory Rate 24 Blood Pressure 136/68 Blood Pressure [Le ft Arm] Blood Pressure [Le ft FA] Blood Pressure [Ri ght Upper Arm] 154/72 H Pulse Oximetry 88 92 93 Oxygen Delivery Me thod Room Air Oxygen Flow Rate 04/13/24 16:45 04/13/24 17:00 04/13/24 17:02 Temperature Pulse Rate 75 74 73 Pulse Rate [Pulse Oximeter] Respiratory Rate Blood Pressure 128/72 Blood Pressure [Le ft Arm] Blood Pressure [Le ft FA] Blood Pressure [Ri ght Upper Arm] Pulse Oximetry 95 95 96 Oxygen Delivery Me thod Oxygen Flow Rate 04/13/24 17:15 04/13/24 17:30 04/13/24 17:31 Temperature Pulse Rate 72 73 73 Pulse Rate [Pulse Oximeter] Respiratory Rate Blood Pressure 119/71 Blood Pressure [Le ft Arm] Blood Pressure [Le ft FA] Blood Pressure [Ri ght Upper Arm] Pulse Oximetry 94 94 95 Oxygen Delivery Me thod Oxygen Flow Rate 04/13/24 17:46 04/13/24 18:00 04/13/24 18:01 Temperature Pulse Rate 66 77 81 Pulse Rate [Pulse Oximeter] Respiratory Rate Blood Pressure 125/79 Blood Pressure [Le ft Arm] Blood Pressure [Le ft FA] Blood Pressure [Ri ght Upper Arm] Pulse Oximetry 95 96 94 Oxygen Delivery Me thod Oxygen Flow Rate 04/13/24 18:15 04/13/24 18:30 04/13/24 18:31 Temperature Pulse Rate 70 78 86 Pulse Rate [Pulse Oximeter] Respiratory Rate Blood Pressure 128/85 Blood Pressure [Le ft Arm] Blood Pressure [Le ft FA] Blood Pressure [Ri ght Upper Arm] Pulse Oximetry 96 94 91 Oxygen Delivery Me thod Oxygen Flow Rate 04/13/24 18:42 04/13/24 18:51 04/13/24 19:00 Temperature 98.9 F 98.8 F Pulse Rate Pulse Rate [Pulse Oximeter] 68 81 Respiratory Rate 16 20 Blood Pressure Blood Pressure [Le ft Arm] Blood Pressure [Le ft FA] 131/69 132/53 L Blood Pressure [Ri ght Upper Arm] Pulse Oximetry 93 90 92 Oxygen Delivery Me thod Nasal Cannula Room Air Nasal Cannula Oxygen Flow Rate 1 1 04/13/24 19:01 04/13/24 19:01 04/14/24 00:16 Temperature 98.2 F Pulse Rate Pulse Rate [Pulse Oximeter] 76 Respiratory Rate 16 Blood Pressure Blood Pressure [Le ft Arm] Blood Pressure [Le ft FA] 133/62 Blood Pressure [Ri ght Upper Arm] Pulse Oximetry 90 90 92 Oxygen Delivery Me thod Nasal Cannula Nasal Cannula Oxygen Flow Rate 1 1 04/14/24 00:16 04/14/24 03:32 04/14/24 08:23 Temperature 98.3 F 98.2 F Pulse Rate Pulse Rate [Pulse Oximeter] 76 73 65 Respiratory Rate 16 16 18 Blood Pressure Blood Pressure [Le ft Arm] Blood Pressure [Le ft FA] 152/81 H 157/79 H Blood Pressure [Ri ght Upper Arm] Pulse Oximetry 93 88 Oxygen Delivery Me thod Nasal Cannula Room Air Oxygen Flow Rate 1 04/14/24 08:23 04/14/24 10:25 04/14/24 10:32 Temperature 97.9 F Pulse Rate Pulse Rate [Pulse Oximeter] 65 67 Respiratory Rate 18 20 Blood Pressure Blood Pressure [Le ft Arm] 136/53 L Blood Pressure [Le ft FA] Blood Pressure [Ri ght Upper Arm] Pulse Oximetry 97 88 Oxygen Delivery Me thod Room Air Nasal Cannula Oxygen Flow Rate 0.5 Labs Labs: Laboratory Results - last 24 hr 04/13/24 04/13/24 04/13/24 17:06 18:57 20:05 WBC 5.11 RBC 4.24 Hgb 11.8 L Hct 38.4 MCV 91 MCH 28 MCHC 31 L RDW Coeff of [place] 15.8 H Plt Count 132 L Neut % (Auto) 75.5 H Lymph % (Auto) 12.5 L [place] % (Auto) 10.2 Eos % (Auto) 1.2 Baso % (Auto) 0.4 Neut # (Auto) 3.90 Lymph # (Auto) 0.60 L [place] # (Auto) 0.50 Eos # (Auto) 0.06 Baso # (Auto) 0.02 Abs Immat Gran (auto) 0.01 Imm/Tot Granulo (auto) 0.2 VBG pH 7.371 VBG pCO2 62 H* VBG pO2 51.4 H VBG HCO3 36 H Sodium 138 Potassium 3.9 Chloride 100 Carbon Dioxide 37 H Anion Gap 1 L BUN 14 Creatinine 0.7 Estimated Creat Clear 55.27 Estimated GFR 97 Glucose 95 Lactate 0.5 Calcium 8.5 Magnesium 2.3 Total Bilirubin 0.4 Direct Bilirubin 0.2 AST 22 ALT 15 Alkaline Phosphatase 76 Troponin I 0.02 C-Reactive Protein 2.6 H NT-Pro-B Natriuret Pep 167 Total Protein 6.5 Albumin 3.8 SARS-CoV-2 (PCR) Influenza Type A (PCR) Influenza Type B (PCR) RSV (PCR) Lab Acknowledgement Test Added Test Added 04/13/24 04/14/24 Unknown 06:15 WBC 4.16 L RBC 4.40 Hgb 12.2 Hct 40.4 MCV 92 MCH 28 MCHC 30 L RDW Coeff of [place] Plt Count 127 L Neut % (Auto) Lymph % (Auto) [place] % (Auto) Eos % (Auto) Baso % (Auto) Neut # (Auto) Lymph # (Auto) [place] # (Auto) Eos # (Auto) Baso # (Auto) Abs Immat Gran (auto) Imm/Tot Granulo (auto) VBG pH 7.345 VBG pCO2 76 H* VBG pO2 < 30.1 VBG HCO3 41 H Sodium 141 Potassium 4.8 Chloride 98 Carbon Dioxide 40 H Anion Gap 3 L BUN 16 Creatinine 0.9 Estimated Creat Clear 55.27 Estimated GFR 71 Glucose 111 Lactate Calcium 8.7 Magnesium Total Bilirubin Direct Bilirubin AST ALT Alkaline Phosphatase Troponin I C-Reactive Protein 4.1 H NT-Pro-B Natriuret Pep Total Protein Albumin SARS-CoV-2 (PCR) POSITIVE SARS-CoV-2 A Influenza Type A (PCR) Negative PCR FLU A Influenza Type B (PCR) Negative PCR FLU B RSV (PCR) Negative PCR RSV Lab Acknowledgement
--- NOTE | 2024-04-14 20:18 | PC.NURSE ---
End of Shift: Patient pleasant and cooperative. Patient vitally stable, lungs diminished, BS WNL, IV SL and intact. Patient is on 1 L NC with sats 88% or above. Patient denies pain, and is independent in room. Patient tolerating regular diet and urinating well. Tele=NSR.
[2024-04-14] MEDS: ENOXAPARIN 40 MG/0.4 ML INJ SUBCUT (21:44)
[2024-04-14] MEDS: SERTRALINE 100 MG TABLET PO (21:44)
[2024-04-14] MEDS: LOSARTAN POTASSIUM 50 MG TABLET 75 MG PO (21:45)
[2024-04-14] MEDS: SPIRONOLACTONE 25 MG TABLET PO (21:45)
[2024-04-14] MEDS: ATORVASTATIN 10 MG TABLET 20 MG PO (23:19)
[2024-04-15 03:00] VITALS: BP 147/87; PULSE 60; RESP 18; TEMP 36.5; O2SAT 93
[2024-04-15] MEDS: LEVOTHYROXINE 75 MCG TABLET 150 MCG PO (05:44)
[2024-04-15 07:00] VITALS: BP 151/71; PULSE 62; PULSE 64; RESP 18; TEMP 36.6; O2SAT 93
[2024-04-15 07:06] LABS: Basophils Absolute Auto 0.01 K/uL (0.00-0.30); Basophils Percent Auto 0.2 % (0.0-3.0); Eosinophils Absolute Auto 0.01 K/uL (0.00-0.50); Eosinophils Percent Auto 0.2 % (0.0-7.0); Hematocrit 39.7 % (33.0-51.0); Immature Granulocytes Abs Auto 0.01 K/uL (0.00-0.30); Immature Granulocytes Pct Auto 0.2 %; Lymphocytes Absolute Auto 1.37 K/uL (0.90-2.90); Lymphocytes Percent Auto 29.7 % (20-44); Mean Corpuscular HGB Conc 30 gm/dL (32-36); Mean Corpuscular Hemoglobin 28 pg (26-34); Mean Corpuscular Volume 92 fL (80-100); Monocytes Percent Auto 10.8 % (0.0-11.0); Neutrophils Absolute Auto 2.72 K/uL (1.7-7.0); Neutrophils Percent Auto 58.9 % (42.0-72.0); Platelet Count* 135 K/uL (140-440); RDW Coefficient of Variation % 15.6 % (11.5-15.5); White Blood Count* 4.62 K/uL (4.50-11.00)
[2024-04-15 07:07] LABS: Slide Review Reflex No
--- NOTE | 2024-04-15 07:38 | PC.NURSE ---
[id number]: Pt AxOx4, cooperative, and pleasant. Pt reported no pain throughout the shift. Pt reported feeling like her SOB has improved with activity. Pt indep in room. Pt using IS independently. Pt remained on 1L NC. Pt tolerating reg fluids well, continent of the bladder. Pt resting watching television with call light in reach.
[2024-04-15 07:39] LABS: Chloride* 100 mmol/L (96-114); Potassium* 4.5 mmol/L (3.6-5.1); Sodium* 142 mmol/L (135-149)
[2024-04-15 07:42] LABS: Creatinine* 0.8 mg/dL (0.5-1.5); Est. Creatinine Clearance* 55.27; Estimated Glomerular Filt Rate 82 ml/min
[2024-04-15 07:43] LABS: Blood Urea Nitrogen* 21 mg/dL (7-30); Calcium* 8.4 mg/dL (8.4-10.6); Glucose* 94 mg/dL (60-115)
[2024-04-15 07:46] LABS: C Reactive Protein* 1.8 mg/dL (0.5-1.0)
[2024-04-15 07:50] LABS: Anion Gap 2 mEq/L (7-15); Carbon Dioxide* 40 mmol/L (20-32)
[2024-04-15 08:58] LABS: HCO3 VBG 41 mmol/L (21-28); Lactate* 0.6 mmol/L (0.5-1.9); PO2 VBG 30.9 mmHG (25-47); pH VBG 7.363 (7.32-7.43)
[2024-04-15 09:03] LABS: PCO2 VBG 72 mmHG (40-50)
[2024-04-15] MEDS: dexAMETHasone 2 MG TABLET 6 MG PO (09:45)
[2024-04-15] MEDS: carvediloL 6.25 MG TABLET PO ×2 (09:46→20:52)
[2024-04-15] MEDS: SODIUM CHLORIDE 0.9 % (FLUSH) 10 ML SYRINGE 5 ML IVF ×2 (09:46→20:53)
[2024-04-15] MEDS: guaiFENesin 600 MG TAB.ER.12H 1200 MG PO ×2 (09:46→20:51)
[2024-04-15 11:00] VITALS: BP 114/45; PULSE 62; RESP 18; TEMP 36.7; O2SAT 90
--- NOTE | 2024-04-15 11:06 | PM.IMPN1 ---
Progress Note: A&P Assessment and plan (1) Acute hypoxic respiratory failure: Problem details: -in setting of acute COVID infection, obesity, HFpEF, untreated AURY 04/15/24 -hypercapnic, CO2 persistently elevated, stable, compensated with pH within normal limits. Appreciate input from RT, continue to follow VBGs -continue oxygen supplementation, monitor closely given CO2 retention -incentive spirometry, aerobika -RT for pulmonary support -continue treatment of covid-19 as below Status: Acute (2) COVID-19: Problem details: -symptomatic for 3days prior to admission, dry cough, fever 101.3 today, weakness -no leukocytosis, lactate 0.5, Mag 2.3 04/15/24 -continue COVID-specific therapies: dexamethasone (day 2) and remdesivir (LFTs unremarkable), (day 2), Mucinex -continue RT for pulmonary support -continue PT/OT consults for weakness Status: Acute (3) Combined systolic and diastolic heart failure, NYHA class 2: Problem details: - Chronic, combined, stable, [place] heart 2 per cardiology - continue spironolactone, Losartan, Carvedilol - BNP wnl - given one time dose Lasix 40mg IV on admission PET 12/08/2023 IMPRESSION 1. Adequate pharmacologic stress test with regadenoson. 2. The pharmacologic stress ECG was nondiagnostic due to nonspecific ST-T changes at baseline. 3. Myocardial perfusion was normal. 4. Stress myocardial blood flow was abnormal at 1.9 ml/min/g and myocardial flow reserve was abnormal at 1.9. 5. Left ventricular cavity size was mildly enlarged (resting EDV 188 ml). 6. Overall left ventricular systolic function was normal without wall motion abnormalities. The resting LVEF was calculated to be 59 %. 7. Compared to prior study of 03/28/14, there is no significant change. TTE 08/19/2023 Final Impressions: 1. Technically limited exam. 2. Normal left ventricular size, mildly increased wall thickness, mildly reduced global systolic function, calculated EF of 41 %. 3. Right ventricular cavity size is normal, global systolic RV function is normal. 4. No hemodynamically significant valve disease detected. 5. The ascending aorta is dilated with a maximal diameter of 4.2 cm. 6. Echo contrast was administered to enhance visualization of all left ventricular segments. Followed by I Status: Chronic (4) Hypertension: Problem details: -continue carvedilol and Cozaar Status: Chronic (5) Hypothyroidism: Problem details: -continue levothyroxine, previous TSH 2.6 Status: Chronic (6) Iron deficiency anemia: Problem details: -hemoglobin 12, stable, baseline 12.3-13.2 Status: Chronic (7) Major depressive disorder: Problem details: -continue Zoloft Status: Chronic (8) Sleep apnea: Problem details: -does not tolerate CPAP Status: Chronic (9) Morbid obesity with body mass index of 50 or higher: Problem details: -noted Status: Chronic Plan -per above -continue RT, OT. Discharged from PT yesterday -continue to wean supplemental oxygen as able; patient was not on oxygen prior to presentation. -disposition:home 1-2 days pending clinical course, weaning off oxygen Time Spent With Patient Total time spent: Today I spent 35 minutes seeing the patient, reviewing Expanse and EPIC notes/diagnostics/labs, discussing the care plan with our care team that includes social work, PT/OT, pharmacy, RT, senior care and documenting my impressions and plan in the medical record. Subjective Time Seen by Provider: 10:45 Date Seen: 04/15/24 Interval history: Georgette notes persistent mild dyspnea with ambulating to the BR. Appetite is good. Denies pain or CP. Exam Narrative: Exam Narrative: General: No acute distress. Awake, alert, oriented. Sitting comfortably in the bedside chair watching TV. No pallor. No jaundice. Oropharynx: Clear. Mucous membranes moist. Cardiovascular: Regular rate and rhythm. No murmurs, gallops, or rubs. Respiratory: Scattered rhonchi. No wheezes or crackles. Abdomen: Bowel sounds present. Soft, nondistended, nontender. Extremities: 2+ bilateral lower extremity nonpitting edema; soft, appears chronic. Const: Vital Signs, click to edit/add: Vital Signs - 24 hr 04/14/24 14:43 04/14/24 14:59 04/14/24 19:00 Temperature 98.1 F Pulse Rate [Pulse Oximeter] 62 62 Respiratory Rate 16 16 Blood Pressure [Le ft Arm] 150/85 H Pulse Oximetry 88 93 Oxygen Delivery Me thod Room Air Nasal Can nula Oxygen Flow Rate 1 04/14/24 19:00 04/14/24 23:00 04/14/24 23:00 Temperature 98.3 F 98.4 F Pulse Rate [Pulse Oximeter] 72 67 Respiratory Rate 18 16 18 Blood Pressure [Le ft Arm] 161/61 H 170/94 H Pulse Oximetry 93 90 Oxygen Delivery Me thod Nasal Cannula Nasal Cannula Oxygen Flow Rate 1 1 04/15/24 03:00 Temperature 97.7 F Pulse Rate [Pulse Oximeter] 60 Respiratory Rate 18 Blood Pressure [Le ft Arm] 147/87 H Pulse Oximetry 93 Oxygen Delivery Me thod Nasal Cannula Oxygen Flow Rate 1 Labs Labs: Laboratory Results - last 24 hr 04/15/24 04/15/24 06:32 08:48 WBC 4.62 RBC 4.30 Hgb 12.0 Hct 39.7 MCV 92 MCH 28 MCHC 30 L RDW Coeff of [place] 15.6 H Plt Count 135 L Neut % (Auto) 58.9 Lymph % (Auto) 29.7 Harrison % (Auto) 10.8 Eos % (Auto) 0.2 Baso % (Auto) 0.2 Neut # (Auto) 2.72 Lymph # (Auto) 1.37 Harrison # (Auto) 0.50 Eos # (Auto) 0.01 Baso # (Auto) 0.01 Abs Immat Gran (auto) 0.01 Imm/Tot Granulo (auto) 0.2 VBG pH 7.363 VBG pCO2 72 H* VBG pO2 30.9 VBG HCO3 41 H Sodium 142 Potassium 4.5 Chloride 100 Carbon Dioxide 40 H Anion Gap 2 L BUN 21 Creatinine 0.8 Estimated Creat Clear 55.27 Estimated GFR 82 Glucose 94 Lactate 0.6 Calcium 8.4 C-Reactive Protein 1.8 H
[2024-04-15 15:00] VITALS: BP 147/80; PULSE 64; RESP 18; TEMP 36.6; O2SAT 93
[2024-04-15 19:00] VITALS: BP 143/80; PULSE 68; RESP 18; TEMP 36.8; O2SAT 95; O2SAT 96
--- NOTE | 2024-04-15 20:14 | PC.NURSE ---
Pt alert, oriented and vitally stable. Pt on 1L O2 intermittently throughout shift. Pt and staff attempted times on RA though pt stated feeling SOB after some time. O2 sats remained above 88. IS and areobika in use. Pt on regular diet and up ind, tolerates well. Pt up in chair, call light within reach.
[2024-04-15] MEDS: ATORVASTATIN 10 MG TABLET 20 MG PO (20:50)
[2024-04-15] MEDS: SPIRONOLACTONE 25 MG TABLET PO (20:51)
[2024-04-15] MEDS: SERTRALINE 100 MG TABLET PO (20:51)
[2024-04-15] MEDS: LOSARTAN POTASSIUM 50 MG TABLET 75 MG PO (20:52)
[2024-04-15] MEDS: ENOXAPARIN 40 MG/0.4 ML INJ SUBCUT (20:54)
[2024-04-15 23:00] VITALS: BP 140/60; PULSE 72; RESP 20; TEMP 36.7; O2SAT 93
[2024-04-16 03:00] VITALS: BP 145/76; PULSE 63; TEMP 36.6; O2SAT 97
[2024-04-16] MEDS: LEVOTHYROXINE 75 MCG TABLET 150 MCG PO (06:49)
[2024-04-16 07:00] VITALS: BP 122/74; PULSE 68; RESP 16; RESP 20; TEMP 36.6; O2SAT 93
[2024-04-16 07:25] LABS: Hematocrit 39.5 % (33.0-51.0); Hemoglobin* 11.8 gm/dL (12.0-16.0); Mean Corpuscular HGB Conc 30 gm/dL (32-36); Mean Corpuscular Hemoglobin 27 pg (26-34); Mean Corpuscular Volume 92 fL (80-100); Platelet Count* 144 K/uL (140-440); Red Blood Count 4.31 m/uL (4.00-5.20); White Blood Count* 5.59 K/uL (4.50-11.00)
[2024-04-16 07:27] LABS: Chloride* 101 mmol/L (96-114); Potassium* 4.1 mmol/L (3.6-5.1); Sodium* 142 mmol/L (135-149)
[2024-04-16 07:30] LABS: Anion Gap 2 mEq/L (7-15); Blood Urea Nitrogen* 23 mg/dL (7-30); Carbon Dioxide* 39 mmol/L (20-32); Creatinine* 0.7 mg/dL (0.5-1.5); Est. Creatinine Clearance* 55.27; Estimated Glomerular Filt Rate 97 ml/min
[2024-04-16 07:31] LABS: Calcium* 8.5 mg/dL (8.4-10.6); Glucose* 95 mg/dL (60-115)
[2024-04-16 07:53] LABS: Slide Review Reflex No
--- NOTE | 2024-04-16 08:37 | PC.NURSE ---
Shift note (1030-8029): Patient pleasant alert and oriented. Independent with ambulation. O2 sats 93-97% on 1 LPM. Took shower at HS. Denied any SOB when showering. C/O abdominal pain rated 5/10 from coughing; declined PRN pain medications when offered.?
[2024-04-16 09:15] VITALS: RESP 20; O2SAT 90
[2024-04-16] MEDS: dexAMETHasone 2 MG TABLET 6 MG PO (09:19)
[2024-04-16] MEDS: guaiFENesin 600 MG TAB.ER.12H 1200 MG PO (09:20)
[2024-04-16] MEDS: carvediloL 6.25 MG TABLET PO (09:20)
[2024-04-16] MEDS: SODIUM CHLORIDE 0.9 % (FLUSH) 10 ML SYRINGE 5 ML IVF (09:20)
--- NOTE | 2024-04-16 10:41 | RESP.RT ---
Patient was setting up in chair (09:15) on room air, SaO2 88%, IS and PEP done, patient SaO2 increased to 92%, promoted good cough, patient swallows secretions. BBS, Decreased bibasilar breath sounds, no wheezing, no rales noted. Patient used Home CPAP but stopped because of mask leakage was uncomfortable. When she used it she stated felt great the next day. Patiet stated she was making an appointment with primary to have a new sleep study to acquire an new machine with updated settings. We discussed mask styles and new vs older machines.
[2024-04-16 11:00] VITALS: BP 117/74; PULSE 60; RESP 18; TEMP 36.9; O2SAT 89
--- NOTE | 2024-04-16 12:42 | P.DS_ITS ---
DS: Providers Provider Time Seen by Provider: 10:50 Date Seen: 04/16/24 Date of admission: 04/13/24 18:57 Primary care physician: Patricia Coronado MD Admitting Clinician: Monica Nunez MD Consults: 04/13/24 18:57 Consult to Occupational Therapy [CONS] Routine Comment: Reason(s) for OT Consult:: Evaluate and Treat Any Restrictions?:: No Restrictions Consult to Physical Therapy [CONS] Routine Comment: Reason(s) for PT Consult:: Evaluate and Treat Any Restrictions?:: No Restrictions Consult to Respiratory Therapy [CONS] Routine Comment: Reason(s) for RT Consult:: Consult Attending Physician on discharge: Nery Montano MD Date of Discharge: 04/16/24 DS: Diagnosis Discharge Diagnosis (1) Acute hypoxic respiratory failure: Status: Resolved Problem details: -in setting of acute COVID infection, obesity, HFpEF, untreated AURY 04/15/24 -hypercapnic, CO2 persistently elevated, stable, compensated with pH within normal limits. Appreciate input from RT, continue to follow VBGs -continue oxygen supplementation, monitor closely given CO2 retention -incentive spirometry, aerobika -RT for pulmonary support -continue treatment of covid-19 as below 04/16/24 - hypoxia resolved. Dyspnea improved. D/c home today - recommended f/u with disability specialist to restart using CPAP for known AURY (2) COVID-19: Status: Acute Problem details: -symptomatic for 3days prior to admission, dry cough, fever 101.3 today, weakness -no leukocytosis, lactate 0.5, Mag 2.3 04/15/24 -continue COVID-specific therapies: dexamethasone (day 2) and remdesivir (LFTs unremarkable), (day 2), Mucinex -continue RT for pulmonary support -continue PT/OT consults for weakness 04/16/24 - Hypoxia resolved. Stop dexamethasone and remdesivir (3) Combined systolic and diastolic heart failure, NYHA class 2: Status: Chronic Problem details: - Chronic, combined, stable, [place] heart 2 per cardiology - continue spironolactone, Losartan, Carvedilol - BNP wnl - given one time dose Lasix 40mg IV on admission PET 12/08/2023 IMPRESSION 1. Adequate pharmacologic stress test with regadenoson. 2. The pharmacologic stress ECG was nondiagnostic due to nonspecific ST-T changes at baseline. 3. Myocardial perfusion was normal. 4. Stress myocardial blood flow was abnormal at 1.9 ml/min/g and myocardial flow reserve was abnormal at 1.9. 5. Left ventricular cavity size was mildly enlarged (resting EDV 188 ml). 6. Overall left ventricular systolic function was normal without wall motion abnormalities. The resting LVEF was calculated to be 59 %. 7. Compared to prior study of 03/28/14, there is no significant change. TTE 08/19/2023 Final Impressions: 1. Technically limited exam. 2. Normal left ventricular size, mildly increased wall thickness, mildly reduced global systolic function, calculated EF of 41 %. 3. Right ventricular cavity size is normal, global systolic RV function is normal. 4. No hemodynamically significant valve disease detected. 5. The ascending aorta is dilated with a maximal diameter of 4.2 cm. 6. Echo contrast was administered to enhance visualization of all left ventricular segments. Followed by I (4) Hypertension: Status: Chronic Problem details: -continue carvedilol and Cozaar (5) Hypothyroidism: Status: Chronic Problem details: -continue levothyroxine, previous TSH 2.6 (6) Iron deficiency anemia: Status: Chronic Problem details: -hemoglobin 11.8, stable, baseline 12.3-13.2 (7) Major depressive disorder: Status: Chronic Problem details: -continue Zoloft (8) Sleep apnea: Status: Chronic Problem details: -does not tolerate CPAP, return to outpatient sleep clinic to restart use of CPAP (9) Morbid obesity with body mass index of 50 or higher: Status: Chronic Problem details: -noted DS: Summary Hospital Course Hospital Course: Per H&P: Sarah Chadwick is a 64 year old female past medical history significant for obesity, nonischemic cardiomyopathy, chronic systolic heart failure, dyspnea on exertion, hypothyroidism, iron deficiency anemia, anxiety, depression is admitted to the medical floor from the ED with acute hypoxic respiratory failure with hypercapnia in setting of acute COVID infection. Patient reports symptom onset 3 days ago. Has had a dry cough. Denies chest pain or tightness. Increasing shortness of breath. Chronically has some level of dyspnea on exertion which he has noticed to worsened. Is not oxygen dependent at home. Does have a history of sleep apnea but has not tolerated CPAP in the past. Uses a walker when walking around the home. Denies headache or dizziness currently. Fever up to 101.3? today. Denies abdominal pain, nausea, vomiting. Has irregular bowels, unchanged. Denies urinary symptoms. Received covid specific therapies (Remdesevir and dexamethasone), RT consult, oxygen via [place]. Has improved and is no longer hypoxic. Hypercapnia compensated. See diagnoses above for full details. Time Spent with Patient Time attestation: Total time spent providing and/or coordinating discharge services: Exam Narrative: Exam Narrative: General: No acute distress. Awake, alert, oriented. Sitting comfortably in the bedside chair napping. No pallor. No jaundice. Oropharynx: Clear. Mucous membranes moist. Cardiovascular: Regular rate and rhythm. No murmurs, gallops, or rubs. Respiratory: Clear to auscultation bilaterally. No wheezes or crackles. Abdomen: Bowel sounds present. Soft, nondistended, nontender. Extremities: 2+ bilateral lower extremity nonpitting edema; soft, unchanged. Const: Vital Signs, click to edit/add: Vital Signs - 24 hr 04/15/24 15:00 04/15/24 15:00 04/15/24 19:00 Temperature 97.8 F 98.2 F Pulse Rate [Pulse Oximeter] 64 64 68 Respiratory Rate 18 18 18 Blood Pressure [Le ft Arm] 147/80 H 143/80 H Blood Pressure [Ri ght Arm] Pulse Oximetry 93 96 Oxygen Delivery Me thod Nasal Cannula Nasal Cannula Oxygen Flow Rate 1 1 04/15/24 19:00 04/15/24 23:00 04/16/24 03:00 Temperature 98.1 F 97.8 F Pulse Rate [Pulse Oximeter] 72 63 Respiratory Rate 20 Blood Pressure [Le ft Arm] 140/60 H Blood Pressure [Ri ght Arm] 145/76 H Pulse Oximetry 95 93 97 Oxygen Delivery Me thod Nasal Cannula Nasal Cannula Oxygen Flow Rate 1 1 04/16/24 07:00 04/16/24 07:00 04/16/24 09:15 Temperature 97.9 F Pulse Rate [Pulse Oximeter] 68 68 Respiratory Rate 16 20 20 Blood Pressure [Le ft Arm] 122/74 Blood Pressure [Ri ght Arm] Pulse Oximetry 93 90 Oxygen Delivery Me thod Room Air Room Air Oxygen Flow Rate DS: Data Data Completed and Pending Completed studies during hospitalization: 04/13/2024 EKG: Sinus rhythm with marked sinus arrhythmia, 74 beats per minute, right superior axis deviation, possible anterior infarct, age undetermined. Ordering Physician: Sydnee Roche M.D. Date of Service: 04/13/24 Procedure(s): XR chest 2V Accession Number(s): [id number] cc: Sydnee Roche M.D.; Patricia Coronado M.D.~ For Patients: As a result of the Cures Act, medical imaging exams and procedure reports are released immediately into your electronic medical record. You may view this report before your referring provider. If you have questions, please contact your health care provider. Indication: COUGH, SHORTNESS OF BREATH Technique: PA and lateral views of the chest. Comparison: None. Findings: Low lung volumes. Normal cardiomediastinal silhouette. No focal consolidation, pleural effusions, or visualized pneumothorax. Moderate degenerative changes of the visualized spine. Impression: No acute cardiopulmonary disease. Dictated by Nick Yao MD @ 04/13/2024 4:09:58 PM (Electronically Signed) Labs on day of discharge: Labs from last 24 hours 04/16/24 06:38 WBC 5.59 RBC 4.31 Hgb 11.8 L Hct 39.5 MCV 92 MCH 27 MCHC 30 L Plt Count 144 Sodium 142 Potassium 4.1 Chloride 101 Carbon Dioxide 39 H Anion Gap 2 L BUN 23 Creatinine 0.7 Estimated Creat Clear 55.27 Estimated GFR 97 Glucose 95 Calcium 8.5 Discharge Plan Discharge Disposition: Home, Self-Care Date of Admission: 04/13/24 18:57 Attending Provider on Discharge: Nery Montano Primary Care Provider: Patricia Coronado Condition: Improved Anticipated Discharge Date/Time: 04/16/24 13:06 Discharge Medications: Continued losartan 50 mg tablet 75 mg PO DAILY carvedilol 6.25 mg tablet 6.25 mg PO BID atorvastatin 20 mg tablet 20 mg PO DAILY sertraline 100 mg tablet 100 mg PO DAILY spironolactone 25 mg tablet 25 mg PO DAILY cyanocobalamin (vitamin B-12) 1,000 mcg/mL solution 1,000 mcg IM Q28D levothyroxine [Synthroid] 150 mcg tablet 150 mcg PO DAILY calcium citrate-vitamin D3 [Citracal Regular] 250 mg-5 mcg (200 unit) tablet 1 tab PO BID Vitron-C 65 mg iron- 125 mg tablet,delayed release (DR/EC) 2 tab PO DAILY Centrum 18-400 mg-mcg tablet 1 tab PO BID Discharge Orders: Discharge Order (Routine); Ordered 04/16/24 Ordered By: Nery Montano Additional Instructions: Return to sleep clinic for reevaluation for CPAP for AURY. Activity Level: No Restrictions Discharge Diet: Regular Follow Up Appointments: Patricia Coronado MD [Primary Care Provider] - [facility] Info Instructions
[2024-04-16 15:00] VITALS: PULSE 60; RESP 18
--- NOTE | 2024-04-16 17:02 | PC.NURSE ---
DC: pt alert, oriented and vitally stable. Pt on room air and tolerates well, sats above 90. Pt up independently. IV removed, tip intact. DC education given to pt, topics including covid precautions, symptoms worsening and follow up with sleep study. Pt DC home at 1630.
== END 2024-04-16 16:30 | disposition home or self-care (01) | DRG 177 ==
LOC: ED 18:06 → MEDSURG 18:41
PROVIDERS: Admitting Provider Physician Assistant; Emergency Provider Emergency Medicine; PCP Family Medicine; Visit Provider Family Medicine
DX: U07.1 COVID-19 (principal); J96.01 Acute respiratory failure with hypoxia; J96.02 Acute respiratory failure with hypercapnia; I50.42 Chronic combined systolic (congestive) and diastolic (congestive) heart failure; Z68.43 Body mass index [BMI] 50.0-59.9, adult; I11.0 Hypertensive heart disease with heart failure; I50.82 Biventricular heart failure; D50.9 Iron deficiency anemia, unspecified; G47.33 Obstructive sleep apnea (adult) (pediatric); E66.01 Morbid (severe) obesity due to excess calories; F41.9 Anxiety disorder, unspecified; F32.9 Major depressive disorder, single episode, unspecified; Z98.84 Bariatric surgery status; E03.9 Hypothyroidism, unspecified; Z87.891 Personal history of nicotine dependence
CPT/HCPCS: 36415; 71046; 80048; 80076; 82803; 83605; 83735; 83880; 84484; 85025; 85027; 86140; 87631; 93005; 94640; 94664; 94761; 97110; 97161; 97165; 97535; 99284; 99285; A9270; J1100; J1650; J1940; J7050

== ENCOUNTER 2024-07-05 20:09 | Outpatient (CLI) | payer OTHER, SELFPAY | END 2024-07-05 20:10 | disposition home or self-care (01) | LOC: SLEEP 20:10 | PROVIDERS: PCP Family Medicine; Visit Provider Internal Medicine | DX: G47.33 Obstructive sleep apnea (adult) (pediatric) (principal); R09.02 Hypoxemia; G47.39 Other sleep apnea | CPT/HCPCS: 95811 ==

== ENCOUNTER 2024-10-02 12:43 | Emergency (ER) | payer OTHER, SELFPAY ==
[2024-10-02] VITALS (12 sets, daily range): BP systolic 142–148; BP diastolic 72–84; PULSE 72–94; RESP 16; TEMP 35.6; O2SAT 93–100; BMI 55.0
--- OUTSIDE RECORDS SUMMARY | 2024-10-02 12:45 | XMS_ITS | Clinical Summary ---
Author Organization [facility] Address [address] [place] [address] Care Team Providers Care Industrial Designer Name Role Phone CliffPatricia castro MD Primary Care Provider Allergies Active Allergy Reactions Criticality Noted Date Comments Lisinopril Cough 10/07/2023 Nsaids (Non-Steroidal Anti-Inflammatory Drug) Other - Describe In Comment Field 08/15/2008 Pt had gastric bypass surgery, should not take oral NSAIDS. Medications CENTRUM 0.4 MG-162 MG-18 MG TAB twice daily 0 008 Active CITRACAL + D ORAL Take up to 2000 mg daily in divided doses Active VITRON-C 200 mg (66 mg Iron)-125 mg Tab TAKE 2 TABLETS BY MOUTH ONCE DAILY. 60 tablet 11 012 Active carvediloL 6.25 mg tabletIndications :HTN (hypertension) Take 1 Tablet (6.25 mg) by mouth two times daily. Please call [phone] 2 months in advance to schedule an office visit due in Dec 2024 180 Tablet 2 025 Active atorvastatin 20 mg tabletIndications :Other hyperlipidemia TAKE 1 TABLET DAILY 90 Tablet 2 025 Active sertraline 100 mg tabletIndications :Anxiety state TAKE 1 TABLET DAILY 90 Tablet 1 025 Active losartan 50 mg tabletIndications :HTN (hypertension),Ch ronic systolic CHF (congestive heart failure) (HC) TAKE ONE AND ONE-HALF TABLETS ONCE DAILY 135 Tablet 2 Active spironolactone 50 mg tabletIndications :Chronic systolic CHF (congestive heart failure) (HC) Take 1 Tablet (50 mg) by mouth once daily. 90 Tablet 3 Active tirzepatide (weight loss) (Zepbound) 2.5 mg/0.5 mL penIndications:OS A (obstructive sleep apnea) Inject 2.5 mg subcutaneous once weekly. 6 mL 3 025 Active tirzepatide (weight loss) (Zepbound) 5 mg/0.5 mL penIndications:OS A (obstructive sleep apnea) Inject 5 mg subcutaneous once weekly. 6 mL 025 Active tirzepatide (weight loss) (Zepbound) 7.5 mg/0.5 mL penIndications:OS A (obstructive sleep apnea) Inject 7.5 mg subcutaneous once weekly. 6 mL 025 Active tirzepatide (weight loss) (Zepbound) 10 mg/0.5 mL penIndications:OS A (obstructive sleep apnea) Inject 10 mg subcutaneous once weekly. 6 mL 025 Active tirzepatide (weight loss) (Zepbound) 12.5 mg/0.5 mL penIndications:OS A (obstructive sleep apnea) Inject 12.5 mg subcutaneous once weekly. 6 mL 025 Active tirzepatide (weight loss) (Zepbound) 15 mg/0.5 mL penIndications:OS A (obstructive sleep apnea) Inject 15 mg subcutaneous once weekly. 6 mL 025 Active BIPAPIndications: Primary central sleep apnea ASV (E0471) machine for home use at pressure: EPAP 15 PS 3-10cmw, Choice of mask (A7030 or A7034) w/full face cushion (A7031) x1/mo, nasal cushion (A7032) x2/mo, or nasal pillows (A7033) x 2/mo; Length of Need: 99 months; Frequency of use: Daily 1 Each Active cyanocobalamin 1,000 mcg/mL injectionIndicati ons:S/P gastric bypass INJECT 1 ML UNDER THE SKIN EVERY 4 WEEKS (MONTHLY) 3 mL 025 Active levothyroxine 150 mcg tabletIndications :Acquired hypothyroidism TAKE 1 TABLET DAILY 90 Tablet 025 Active levothyroxine 150 mcg tabletIndications :Acquired hypothyroidism TAKE 1 TABLET DAILY 90 Tablet 025 2024 Discontinued Hospital, Clinic, or Other Facility Administered Medication Ordered Dose Route Frequency Start Date End Date Status cyanocobalamin (VITAMIN B12) 1,000 mcg/mL injection 1,000 mcgIndications:B12 deficiency 1000 mcg IM Q 4 WEEKS (28 DAYS) 06/08/2020 Active Active Problems Problem Noted Date [...] Unspecified sleep apnea 07/16/2006 Overview (07/16/2006): uses KGGI660.1 Anxiety state, unspecified 07/16/2006 Morbid obesity with BMI of 50.0-59.9, adult 06/28 Major depressive disorder, recurrent episode, un specified Hypothyroidism Resolved Problems Problem Noted Date Diagnosed Date Resolved Date Depressive disorder, not elsewhere classified 07/17/19 07 08/09/2007 abnormal pap 07/16/2006 08/07/2006 Overview (07/16/2006): abnormal papsmear had cryo Encounters Date Type Department Care Team Description 09/22/2024 Orders Only [facility] [address] [place] [address] Timur Sosa MD 1 scan: (1-Ord) [employer], 07/05/2024 09/20/2024 Telephone [facility] [address] [place] [address] Timur Sosa MD 09/20/2024 Telephone [facility] [address] [place] [address] Patricia Coronado MD Follow Up (Returning call) 09/19/2024 Refill [facility] [address] [facility] [place] [address] Patricia Coronado MD Refill Request (Levothyroxine) 08/22/2024 Refill [facility] [address] [facility] [place] [address] Patricia Coronado MD Refill Request (Cyanocobalamin, Spironolactone) 08/18/2024 7:45 AM CDT Orders Only [facility] [address] [facility] [place] [address] [place] [place] [facility] 08/18/2024 Travel 08/15/2024 Refill [facility] [address] [facility] [place] [address] Timur Sosa MD Refill Request 08/05/[address] [place] [address] Patricia Coronado MD Refill Request (Zepbound Pen 0.5ml 4's) 08/04/2024 10:55 AM CDT Office Visit [address] [place] [address] Patricia Coronado MD Consult (Dr. Sosa wanted her to touch base with PCP in regards to Zepbound) 08/03/2024 Travel 07/25/2024 8:30 AM CDT Office Visit [address] [place] [address] Timur Sosa MD Sleep Follow-up 07/25/2024 Travel 07/18/[address] [facility] [address] [facility] [place] [address] Shakeel Watt MD Refill Request (Losartan) 07/11/2024 Refill [facility] [address] [facility] [address] Patricia Coronado MD Refill Request (Sertraline) 07/05/2024 9:30 PM CDT Procedure Only [facility] [address] [place] [address] Timur Sosa MD 07/05/2024 Orders Only [facility] Scanner 1 scan: (1-Ord) [facility] REPORT, 07/05/2024 07/05/2024 Orders Only [facility] Scanner 1 scan: (1-Ord) [place] [facility] REPORT, 07/05/2024 from Last 3 Months Immunizations Immunization Administration Dates Next Due COVID-19 vaccine (Moderna 100mcg/0.5mL) SHASHANK GROVES 08/28/2020 COVID-19 vaccine ([employer] 30mcg/0.3mL) 12YO+ MARTITA-SUCROSE SHASHANK GROVES 09/02/2021 [...] or isolated from those around you? 0 08/03/2024 Financial Resource Strain Answer Date R ecorded Difficulty of Paying Living Expenses 3 08/03/2024 Difficulty of Paying Living Expenses Not on file 08/03/2024 Food Insecurity Answer Date Recorded Do you worry your food will run out before you are able to buy more? 1 08/03/2024 Transportation Needs Answer Date Record ed Does lack of transportation keep you from medica l appointments? 1 08/03/2024 Does lack of transportation keep you from work, meetings or getting things that you need? 1 08/03/2024 Housing Stability Answer Date Recorded What is your housing situation today? 1 08/03/2024 Utilities Answer Date Recorded Do you have trouble paying f or utilities (for example, heat, electricity, water, phone)? 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 Not on file Not on file Obstetrics History Last Filed Vital Signs Vital Sign Reading Time Taken Comments Blood Pressure 142/85 08/04/2024 10:48 AM CDT Pulse 71 08/04/2024 10:48 AM CDT Temperature 36.5 C (97.7 F) 03/01/2018 8:58 AM PASSPORT SUPPORT MANAGER Respiratory Rate 14 04/12/2014 2:18 PM PASSPORT SUPPORT MANAGER Oxygen Saturation 98% 08/04/2024 10: 48 AM CDT Inhaled Oxygen Concentration - - Weight 168.4 kg (371 lb 3.2 oz) 025 10:48 AM CDT Height 167.6 cm (5' 6) 07/25/2024 8:20 AM CDT Body Mass Index 59.91 07/25/2024 8:20 AM CDT Plan of Treatment Upcoming Encounters Date Type Department Care Team (Late st Contact Info) Description 10/20/2024 7:15 AM CDT Orders Only [address] [place] [address] [place] 10/24/2024 7:00 AM CDT Office Visit [facility] [address] [place] [address] Patricia Coronado MD [address] [place] [address] 10/31/2024 1:00 PM CDT Office Visit [facility] [address] [facility] [place] [address] Timur Sosa MD [address] [facility] [place] [address] 01/10/2025 9:00 AM CDT Office Visit [facility] [address] [place] [id number] Shakeel Watt MD [address] [place] [address] Health Maintenance Due Date Last Done Comments RSV vaccine for adults or (1 - Risk 60-74 years 1-dose series) 2020 Colonoscopy through age 75 04/16/202204/16, 04/16/2012, 04/16/2012 COVID-19 vaccine series ( season) 2023 09/02/2021, 09/25/2020, 08/28/2020 Depression screening for age 12+ 07/16/2024 07/17/2023, 09/02/2021, 06/08/2020, Additional history exists Mammogram for age 45-75 07/20/2024 07/21/19 24, 10/03/2021, 06/08/2020, Additional history exists Influenza Vaccine (#1) 2024 0, 03/01/2018, 04/09/2015, Additional history exists Tetanus booster 04/09/2025 04/09/2015, 0703/2005, 12/16/1995 Pap test for age 21-65 06/08/2025 , 06/08/2020, 04/09/2015, Additional history exists BMI (ht and wt on same day) for age 18+ 07/25/2025 07/25/2024, 06/17/2024, 07/17/2023, Additional history exists Lipids for age 45-75 07/16/2028 07/17/2023, 09/02/2021, 06/08/2020, Additional history exists HIV for age 15-65 Completed 08/11/2006 Hepatitis C screening for age 18-79 Completed 03/10/2014, 08/11/2006 Zoster (shingles) series for age 50+ Completed 06/08/2020, 04/28/2019 Pneumococcal series for age 50+ Completed 09/17/2023 Hepatitis B series for 19+ Aged Out N o longer eligible based on patient's age to complete this topic Medical Devices Implanted Type Area Electric Vehicle Electrician Device Identifier Shelf Expiration Date Model / Serial / Lot [id number] 2x12mm [[id number]] Implanted:Qty: 1 on 08/11/2006 at [facility] Explanted:at [facility] (Quantity not on file) Stomach [employer] [id number] / [id number] / Procedures Procedure Name Priority Date/Time Associated Diagnosis Comments BASIC METABOLIC PANEL Routine 08/18/2024 7:41 AM CDT Chronic systolic CHF (congestive heart failure) (HC) SLEEP STUDY PER PROTOCOL Routine 07/05/2024 12:00 AM CDT AURY 11/04/2005 AHI- 143 SCAN-SLEEP STUDY 07/05/2024 12:0 0 AM CDT SCAN-SLEEP STUDY 07/05/2024 12:0 0 AM CDT XR MAMMO BILAT SCREENING Routine 07/21/2023 7:45 AM CDT Visit for screening mammogram LIPID PANEL W REFLEX MEASURED LDL Routine 07/17/2023 3:40 PM CDT Other hyperlipidemia CLOTH BIN PACKER THIN PREP PAP SCREEN IMAGED Routine 06/08/2020 8:15 AM PASSPORT SUPPORT MANAGER Screening for cervical cancer ANTI HCV Routine 03/10/2014 8:53 AM PASSPORT SUPPORT MANAGER Need for hepatitis C screening test EXPOSURE (BBF) RAPID HIV STAT 08/11/2006 9:58 AM CDT from Last 3 Months or Most Recently Relevant to Health Maintenance Results * (ABNORMAL) BASIC METABOLIC PANEL (08/18/2024 7:41 AM CDT) GLUCOSE 87 65 - 99 mg/dL [facility] Comment: Fasting reference interval UREA NITROGEN (BUN) 21 7 - 25 mg/dL [facility] CREATININE 0.96 0.50 - 1.05 mg/dL [facility] EGFR 66 > OR = 60 mL/min/1. 73m2 [facility] BUN/CREATININE RATIO SEE NOTE: 6 - 22 (calc) [facility] Comment: Not Reported: BUN and Creatinine are within reference range. SODIUM 143 135 - 146 mmol/L [facility] POTASSIUM 4.9 3.5 - 5.3 mmol/L [facility] CHLORIDE 100 98 - 110 mmol/L [facility] CARBON DIOXIDE 35(H) 20 - 32 mmol/L [facility] ELECTROLYTE BALANCE 8 7 - 17 mmol/L (calc) [facility] CALCIUM 9.3 8.6 - 10.4 mg/dL [facility] Blood BLOOD SPECIMEN / Unknown 08/18/2024 7:41 AM CDT 08/18/2024 7:42 AM CDT Patricia Coronado MD CHEMISTRY Final R esult [employer] [facility] [address] [place] [address], [place] [phone] [facility] [address] [place] [address] * SCAN-SLEEP STUDY (07/05/2024 12:00 AM CDT) us Scanner OTHER Final Result * SCAN-SLEEP STUDY (07/05/2024 12:00 AM CDT) Scanner OTHER Final Result * SLEEP STUDY PER PROTOCOL (07/05/2024 12:00 AM CDT) Timur Sosa MD SLEEP CENTER Final Result * XR MAMMO BILAT SCREENING (07/21/2023 7:45 [...] For Patients: As a result of the Cures Act, medical imaging exams and procedure reports are released immediately into your electronic medical record. You may view this report before your referring provider. If you have questions, please contact your health care provider. XR MAMMO BILAT SCREENING [[id number]] CLINICAL HISTORY: This is an asymptomatic 63 y.o. patient. INDICATION FOR EXAM: Mammogram Screening. TECHNIQUE: CC & MLO views were obtained. This study was evaluated with the assistance of Computer-Aided Detection. COMPARISON FILM: Yes 10/03/21 [place] 06/08/20 [place]us FINDINGS: The breasts have scattered areas of fibroglandular density. There are no dominant masses, suspicious micro calcifications or areas of architectural distortion. Patricia Coronado MD MAMMO Final R esult * LIPID PANEL W REFLEX MEASURED LDL (07/17/2023 3:40 PM CDT) CHOLESTEROL,TOTAL 189 100 - 199 mg/dL 07/17/2023 9:05 PM CDT [facility] Comment: Cholesterol, Total Reference Ranges Desirable <200 mg/dL Borderline 200-239 mg/dL High >=240 mg/dL TRIGLYCERIDES 104 <150 mg/dL 07/17/2023 9:05 PM CDT [facility] HDL CHOLESTEROL 67 >40 mg/dL 9:05 PM CDT [facility] NON-HDL CHOLESTEROL 122 <145 mg/dl 07/17/2023 9:05 PM CDT [facility] CHOL/HDL RATIO 2.82 <4.50 07/17/2023 9:05 PM CDT [facility] LDL CHOLESTEROL 101 <=130 mg/dL 07/17/2023 9:05 PM CDT [facility] VLDL CHOLESTEROL 21 <=30 mg/dL 07/17/2023 9:05 PM CDT [facility] PROVIDER ORDERED STATUS RANDOM 07/17/2023 9:05 PM CDT [facility] Blood BLOOD SPECIMEN / Unknown Venipuncture / Unknown 07/17/2023 3:40 PM CDT 07/17/2023 3:41 PM CDT us Patricia Coronado MD CHEMISTRY Final R esult [facility] [address] [place] [address], * CLOTH BIN PACKER THIN PREP PAP SCREEN IMAGED [[id number]] (06/08/2020 8:15 AM PASSPORT SUPPORT MANAGER) Case Report Gynecologic Cytology Report Case: [id number] Authorizing Provider: Patricia Coronado MD Collected: 06/08/2020 0815 Ordering Location: [facility] Received: 06/08/2020 0852 Clinic First Screen: [place] Specimen: CLOTH BIN PACKER ThinPrep Vial Screening, Cervical 06/19/2020 8:28 AM CDT [facility] INTERPRETATION/ RESULT NEGATIVE FOR INTRAEPITHELIAL LESION OR MALIGNANCY (NIL) (none) 06/19/2020 8:28 AM CDT [facility] at 0828 CDT SPECIMEN ADEQUACY Satisfactory for evaluation Endocervical component present 06/19/2020 8:28 AM CDT [facility] HPV REQUEST HPV and PAP 06/19/2020 8:28 AM CDT [facility] Date of LMP 201306/19/2020 8:28 AM CDT [facility] Last Pap Date 04/09/15 06/19/2020 8:28 AM CDT [facility] Last Pap Result NIL 8:28 AM CDT [facility] Abnormal Pap or Prim Bx in last 5 years No 06/19/2020 8:28 AM CDT [facility] Menstrual Status Postmenopausal 06/19/2020 8:28 AM CDT [facility] Prim Bx Done Today No 06/19/2020 8:28 AM CDT [facility] Additional Information None given 06/19/2020 8:28 AM CDT [facility] Comment: Cytology is screened at [facility] - [address] [address] and [facility] - [address], [place] [address] and [facility] - [address] [facility] [address] Interpreted at [facility] - [address], [place] [address] Automated Review Successful 06/19/2020 8:28 AM CDT [facility] Comment:Specimen processed s uccessfully by automated commercial engineer device, ThinPrep Imaging System, [employer] ANCILLARY TESTING CLOTH BIN PACKER HPV Ordered, Please see separate report 06/19/2020 8:28 AM CDT [facility] Note The pap test is a [...] and malignant lesions. 06/19/2020 8:28 AM CDT [facility] Other (Cervical) Non-Blood / Unknown 06/08/2020 8:15 AM PASSPORT SUPPORT MANAGER 06/08/2020 8:52 AM PASSPORT SUPPORT MANAGER Patricia Coronado MD PATHOLOGY/CYTOLOGY Peace l Result [facility] [address] [place] [address], [place] * ANTI HCV [72318.2] (03/10/2014 8:53 AM PASSPORT SUPPORT MANAGER) HEPATITIS C ANTIBODY Non-Reacti ve Non-Reacti ve 03/10/2014 1:50 PM PASSPORT SUPPORT MANAGER [facility] Blood specimen (specimen) BLOOD SPECIMEN / Unknown Venipuncture / Unknown 03/10/2014 8:53 AM PASSPORT SUPPORT MANAGER 03/10/2014 8:53 AM PASSPORT SUPPORT MANAGER Narrative [facility] - 03/10/2014 1:50 PM PASSPORT SUPPORT MANAGER Antibodies to HCV not detected; does not exclude the possibility of exposure to HCV. Patricia Coronado MD SEND OUTS Final R esult Performing Organization Address City/[facility]/ZIP Co de Phone Number [facility] [address] [place] [address], [place] * PATIENT SOURCE RAPID HIV (08/11/2006 9:58 AM CDT) SOURCE RAPID HIV SCREEN Nonreactive (Nonreact mayank) [facility] Blood specimen (specimen) BLOOD SPECIMEN / Unknown 08/11/2006 9:58 AM CDT 08/11/2006 8:37 AM CDT Dallin Márquez MD SEND OUTS Final Res ult [facility] INTERNAL ZIP [address] [place] [id number] from Last 3 Months or Most Recently Relevant to Health Maintenance Insurance [employer] Advance Directives Documents on File Type Date Recorded Patient Capacity Manager Expl anation Healthcare Directive 08/14/2006 * Full Code (Latest Code Status on File) Date Activated Date Inactivated Comments 08/11/2006 5:35 AM 08/12/2006 4:44 PM Care Teams Industrial Designer Relationship Specialty Start Date End Date Patricia Coronado MD [address] [place] [address] PCP - General Family Practice 11/05/10
--- NOTE | 2024-10-02 12:58 | ED.BACK ---
HPI - Back Pain/Injury General Chief Complaint: Back Injury/Pain Stated Complaint: EXTREME LEFT SIDED BACK PAIN Time Seen by Provider: 10/02/24 12:52 Source: patient and RN notes reviewed Mode of arrival: ambulatory Limitations: no limitations History of Present Illness HPI Narrative: Betty is a 64-year-old female with a history of systolic and diastolic heart failure class to, nonischemic cardiomyopathy, history of hypothyroidism and hypertension who comes to the emergency room for evaluation regarding left lower back pain. Betty notes that this awoke her from sleep and has been very significant. She shows this to be her left lower flank. It is not associated with fever chills or vomiting. It is not associated with dysuria hematuria or change in bowel movements. Has chronic low back pain with chronic radiation of the discomfort into her left leg. This has not changed. She feels that this is a different type of pain. Movement does not really increase her discomfort. She is unable to take NSAIDs given history of gastric bypass she is not currently on a blood thinner patient notes she is currently taking zepbound for weight loss. She was initially worried about pancreatitis as this has been associated with this particular medication. She however, she denies any abdominal pain. Related Data Home Medications ?Medication ?Instructions ?Recorded ?Confirmed atorvastatin 20 mg tablet 20 mg PO DAILY 04/13/24 10/02/24 carvedilol 6.25 mg tablet 6.25 mg PO BID 04/13/24 10/02/24 cyanocobalamin (vitamin B-12) 1,000 mcg IM Q28D 04/13/24 10/02/24 1,000 mcg/mL injection solution levothyroxine 150 mcg tablet 150 mcg PO DAILY 04/13/24 10/02/24 (Synthroid) losartan 50 mg tablet 75 mg PO DAILY 04/13/24 10/02/24 sertraline 100 mg tablet 100 mg PO DAILY 04/13/24 10/02/24 spironolactone 25 mg tablet 25 mg PO DAILY 04/13/24 10/02/24 calcium 250 mg (as 1 tab PO BID 04/14/24 10/02/24 citrate)-vitamin D3 5 mcg (200 unit) tablet (Citracal Regular) iron,carbonyl 65 mg-vitamin C 125 2 tab PO DAILY 04/14/24 10/02/24 mg tablet,delayed release (Vitron-C) multivitamin-ferrous 1 tab PO BID 04/14/24 10/02/24 fumarate-folic acid 18 mg-400 mcg tablet (Centrum) tirzepatide (weight loss) 5 mg/0.5 5 mg subcut .weekly 10/02/24 10/02/24 mL subcutaneous pen injector (Zepbound) Allergies Allergy/AdvReac Type Severity Reaction Status Date / Time NSAIDS (Non-Steroidal Allergy Mild Abdominal Verified 10/02/24 12:49 Anti-Inflamma Pain Review of Systems Status of ROS: Reports: 10 or more systems reviewed and unremarkable except as noted in History and below Const: Denies: fever or chills ENMT: Denies: neck pain or nasal congestion Cardio: Denies: chest pain or swelling of feet/ankles Resp: Denies: cough GI: Reports: nausea; Denies: abdominal pain, vomiting, diarrhea or constipation : Denies: painful urination or urinary frequency Musculo: Reports: back pain and extremity pain (Right leg sciatica chronic); Denies: neck pain Integ/Breast: Denies: rash Neuro: Denies: headache PFSH PFSH Medical History COVID-19 ?U07.1 - COVID-19 (ICD-10) Combined systolic and diastolic heart failure, NYHA class 2 ?I50.40 - Unspecified combined systolic (congestive) and diastolic (congestive) heart failure (ICD-10) Nonischemic cardiomyopathy ?I42.8 - Other cardiomyopathies (ICD-10) Sleep apnea ?G47.30 - Sleep apnea, unspecified (ICD-10) Major depressive disorder ?F32.9 - Major depressive disorder, single episode, unspecified (ICD-10) Anxiety ?F41.9 - Anxiety disorder, unspecified (ICD-10) Iron deficiency anemia ?D50.9 - Iron deficiency anemia, unspecified (ICD-10) Hypothyroidism ?E03.9 - Hypothyroidism, unspecified (ICD-10) Morbid obesity with body mass index of 50 or higher ?E66.01 - Morbid (severe) obesity due to excess calories (ICD-10) Chronic systolic heart failure ?I50.22 - Chronic systolic (congestive) heart failure (ICD-10) Hypertension ?I10 - Essential (primary) hypertension (ICD-10) Surgical History History of gastric bypass ?Z98.84 - Bariatric surgery status (ICD-10) Social History What is your current living situation?: I presently have a place to live Problems where you live: no known problems Problems where you live details: none In the past 12 months, utilities in danger of being shut off: no In past 12 months, lack of transportation kept you from medical appts, meetings, work, or getting things needed for daily living: no In the past 12 mos, have been you worried that your food would run out before you had money to buy more?: never true In the past 12 mos, the food you bought just didn't last and you didn't have money to buy more?: never true Highest level of school completed/degree received: high school graduate Smoking Status: Former smoker What tobacco products do you use: cigarettes Smoking quit date/years: >15 years ago Do you use any of these nicotine containing products: None Second hand tobacco smoke exposure: No How often do you have a drink containing alcohol: never AUDIT-C Alcohol total score: 0 Non-prescribed substance use: denies use Caffeine: Yes How often does anyone, including family, friends and others, physically hurt you: never How often does anyone, including family, friends and others, insult or talk down to you: never How often does anyone, including family, friends and others, threaten you with harm: never How often does anyone, including family, friends and others, scream or curse at you: never service: No Exam Narrative: Exam Narrative: Alert and oriented. Diaphoretic in discomfort. External ears eyes nose clear. Mentation and speech is normal. Heart with regular rate and rhythm and lungs are clear bilaterally. Abdomen is obese soft nontender. She has no pain with rotation down her thoracic or lumbar spine or over her posterior superior iliac crest. She does have pain with palpation along the lateral aspect of her left flank however. Const: Vital Signs, click to edit/add: Vital Signs - 24 hr 10/02/24 12:49 10/02/24 14:05 10/02/24 14:12 Temperature 96.1 F L Pulse Rate 79 Pulse Rate [Pulse Oximeter] 72 Respiratory Rate 16 Blood Pressure [Ri ght Upper Arm] 148/84 H Pulse Oximetry 93 97 Oxygen Delivery Me thod Nasal Cannula Nasal Cannula Oxygen Flow Rate 1 1 10/02/24 14:15 10/02/24 14:32 10/02/24 14:45 Temperature Pulse Rate 78 94 91 Pulse Rate [Pulse Oximeter] Respiratory Rate Blood Pressure [Ri ght Upper Arm] Pulse Oximetry 99 97 99 Oxygen Delivery Me thod Nasal Cannula Nasal Cannula Nasal Cannula Oxygen Flow Rate 1 1 1 10/02/24 15:01 10/02/24 15:15 10/02/24 15:30 Temperature Pulse Rate 88 82 87 Pulse Rate [Pulse Oximeter] Respiratory Rate Blood Pressure [Ri ght Upper Arm] Pulse Oximetry 99 100 97 Oxygen Delivery Me thod Nasal Cannula Room Air Nasal Cannula Oxygen Flow Rate 1 1 1 Documenting provider has reviewed patient's vital signs: yes Course Course ED Course: Differential diagnosis includes but is not limited to musculoskeletal strain, ureteral colic, pyelonephritis, retroperitoneal bleed. At this time will place IV and give pain meds to include morphine 4 mg, Zofran 4 mg. Given her history of systolic and diastolic heart failure as well as cardiomyopathy will only give 250 mL of fluid as a means to protector against the CT contrast. Will order CT of the abdomen. CBC, comprehensive panel, lipase, lactate, CRP, urinalysis also ordered today. Reevaluation(s) Reevaluation #1: Patient noted increasing pain and thus was given Dilaudid and this has helped. Her pain is currently a 2/10. Unfortunately she does have superimposed infection on a left ureteral stone. Vital Signs Vital signs: Initial Vital Signs Temperature 96.1 F L 10/02/24 12:49 Temperature Source Temporal Artery Scan 10/02/24 12:49 Pulse Rate 72 10/02/24 12:49 Pulse Rhythm Regular 10/02/24 12:49 Respiratory Rate 16 10/02/24 12:49 Blood Pressure 148/84 H 10/02/24 12:49 Blood Pressure Mean 105 10/02/24 12:49 Blood Pressure Position Sitting 10/02/24 12:49 Pulse Oximetry 93 10/02/24 12:49 Vital Signs Temperature 96.1 F L 10/02/24 12:49 Pulse Rate 72 10/02/24 12:49 Respiratory Rate 16 10/02/24 12:49 Blood Pressure 148/84 H 10/02/24 12:49 Pulse Oximetry 93 10/02/24 12:49 Temperature 96.1 F L 10/02/24 12:49 Pulse Rate 87 10/02/24 15:30 Respiratory Rate 16 10/02/24 12:49 Blood Pressure 148/84 H 10/02/24 12:49 Pulse Oximetry 97 10/02/24 15:30 Oxygen Delivery Method Nasal Cannula 10/02/24 15:30 Oxygen Flow Rate 1 10/02/24 15:30 Medications Administered Medications: Discontinued Medications Generic Name Dose Route Start Last Admin Trade Name Freq PRN Reason Stop Dose Admin Hydromorphone HCl 0.5 mg 10/02/24 14:36 10/02/24 14:44 Hydromorphone 0.5 Mg/0.5 Ml Inj IVP 10/02/24 14:37 0.5 mg ONCE ONE Administration Sodium Chloride 250 mls @ 250 mls/hr 10/02/24 13:06 10/02/24 14:50 0.9 % Sodium Chloride 250 Ml IV 10/02/24 14:05 Infused .Q1H ONE Infusion Ceftriaxone Sodium 1 gm/ 100 mls @ 200 mls/hr 10/02/24 15:17 10/02/24 15:29 Sodium Chloride IVPB 10/02/24 15:18 200 mls/hr ONCE ONE Administration Morphine Sulfate 4 mg 10/02/24 13:05 10/02/24 13:47 Morphine 4 Mg/Ml Inj IVP 10/02/24 13:06 4 mg ONCE ONE Administration Ondansetron HCl 4 mg 10/02/24 13:05 10/02/24 13:45 Ondansetron 2 Mg/Ml Inj IVP 10/02/24 13:06 4 mg ONCE ONE Administration MDM - Back Pain/Injury MDM Narrative Medical decision making narrative: 1. Ureteral colic-patient noted to have a 5 mm stone in the proximal left ureter. Initially treated with morphine and Zofran she did have pain return and Dilaudid seemed to help her pain. She did require oxygen for this therapy. Will be straining her urine while she is here in the emergency room. 2. UTI-patient has superimposed UTI noted on her urinalysis as well as CT did show some cystitis. Will give her Rocephin 1 g IV. Will attempt transfer to outside facility for stone removal. Fortunately at this time she is not septic but of course at high risk. 3. Disposition-patient has been accepted in transfer by Dr. Monroy at [facility]. During our time on the phone urology was sent a message notifying of this patient arrival. Images were pushed to [place]. Medical Records Attestation: I reviewed the patient's medical records. Lab Data Attestation: I reviewed the patient's lab results. Labs: Lab Results 10/02/24 10/02/24 Range/Units 13:20 13:39 WBC 8.81 (4.50-11.00) K/uL RBC 4.82 (4.00-5.20) m/uL Hgb 13.3 (12.0-16.0) gm/dL Hct 42.7 (33.0-51.0) % MCV 89 (80-100) fL MCH 28 (26-34) pg MCHC 31 L (32-36) gm/dL RDW Coeff of [place] 15.5 (11.5-15.5) % Plt Count 173 (140-440) K/uL Neut % (Auto) 73.5 H (42.0-72.0) % Lymph % (Auto) 18.2 L (20-44) % [place] % (Auto) 6.1 (0.0-11.0) % Eos % (Auto) 1.8 (0.0-7.0) % Baso % (Auto) 0.3 (0.0-3.0) % Neut # (Auto) 6.50 (1.7-7.0) K/uL Lymph # (Auto) 1.60 (0.90-2.90) K/uL [place] # (Auto) 0.50 (0.00-0.90) K/UL Eos # (Auto) 0.16 (0.00-0.50) K/uL Baso # (Auto) 0.03 (0.00-0.30) K/uL Abs Immat Gran (auto) 0.01 (0.00-0.30) K/uL Imm/Tot Granulo (auto) 0.1 % Sodium 141 (135-149) mmol/L Potassium 4.6 (3.6-5.1) mmol/L Chloride 100 (96-114) mmol/L Carbon Dioxide 34 H (20-32) mmol/L Anion Gap 7 (7-15) mEq/L BUN 20 (7-30) mg/dL Creatinine 0.9 (0.5-1.5) mg/dL Estimated Creat Clear 55.27 Estimated GFR 71 ml/min Glucose 105 (60-115) mg/dL Lactate 1.0 (0.5-1.9) mmol/L Calcium 9.7 (8.4-10.6) mg/dL Total Bilirubin 0.7 (0.1-1.5) mg/dL AST 26 (12-35) U/L ALT 18 (4-35) U/L Alkaline Phosphatase 91 (40-150) U/L C-Reactive Protein 0.6 (0.5-1.0) mg/dL Total Protein 7.7 (6.0-8.3) g/dL Albumin 4.4 (3.3-5.0) g/dL Lipase 318 H (23-300) U/L Urine Color Yellow (Yellow) Urine Appearance Cloudy A (Clear) Urine pH 5.0 (5.0-8.5) Ur Specific [place] > 1.030 H (1.000-1.030) Urine Protein 2+ A (Negative) Urine Glucose (UA) Negative (Negative) Urine Ketones Trace A (Negative) Urine Blood 3+ A (Negative) Urine Nitrite Positive A (Negative) Urine Bilirubin Negative (Negative) Urine Urobilinogen 0.2 (0.2-1.0) Ur Leukocyte Esterase Trace A (Negative) Urine RBC 25-50 A (0-2) Urine WBC 2-5 (0-5) Ur Squamous Epith Cells Many A (None-Few) Urine Bacteria Many A (None) Imaging Data CT scan - abdomen: Attestation: I have reviewed the pertinent imaging results. My impression: Left ureteral stone identified. Suggest hydroureter as well. Radiologist's impression: Lower chest: Unremarkable. Liver: Normal in size and attenuation. No suspicious masses. Gallbladder and bile ducts: No stones or inflammation. No biliary dilatation. Pancreas: Unremarkable. No mass or inflammation. Spleen: Normal in size. 5.5 centimeter cyst in the spleen. Adrenal glands: Normal in size. No nodules. Kidneys: 5 millimeter left proximal ureteral stone with mild hydronephrosis and hydroureter urothelial thickening. Delayed left nephrogram. Low-attenuation lesions the left kidney may represent cysts. GI tract: Gastric bypass changes. Normal appendix. Vasculature: Abdominal aorta is normal in caliber. Lymph nodes: No lymphadenopathy. Peritoneum/Abdominal Wall: Moderate umbilical fat containing hernia Pelvis: Urinary bladder decompressed with wall thickening nonobstructing left renal calculus. Lumbar spondylosis. IMPRESSION: 1. Mild left hydronephrosis and hydroureter with a 5 millimeter left proximal ureteral stone. Delayed nephrogram. Urothelial enhancement. Superimposed infection not excluded. Decompressed urinary bladder wall thickening slight persistent stranding correlate for possible cystitis Discharge Plan Discharge Prescriptions: No Action losartan 50 mg tablet 75 mg PO DAILY carvedilol 6.25 mg tablet 6.25 mg PO BID atorvastatin 20 mg tablet 20 mg PO DAILY sertraline 100 mg tablet 100 mg PO DAILY spironolactone 25 mg tablet 25 mg PO DAILY cyanocobalamin (vitamin B-12) 1,000 mcg/mL solution 1,000 mcg IM Q28D levothyroxine [Synthroid] 150 mcg tablet 150 mcg PO DAILY calcium citrate-vitamin D3 [Citracal Regular] 250 mg-5 mcg (200 unit) tablet 1 tab PO BID Vitron-C 65 mg iron- 125 mg tablet,delayed release (DR/EC) 2 tab PO DAILY Centrum 18-400 mg-mcg tablet 1 tab PO BID Zepbound 5 mg/0.5 mL pen injector 5 mg subcut .weekly Follow Up/Referrals: Patricia Coronado MD [Primary Care Provider, Family Practice]
--- NOTE | 2024-10-02 13:04 | CRLHL7_ITS ---
For Patients: As a result of the Century Cures Act, medical imaging exams and procedure reports are released immediately into your electronic medical record. You may view this report before your referring provider. If you have questions, please contact your health care provider. INDICATION: Left flank pain TECHNIQUE: CT abdomen and pelvis with 150 mL Isovue intravenous contrast. COMPARISON: None. FINDINGS: Lower chest: Unremarkable. Liver: Normal in size and attenuation. No suspicious masses. Gallbladder and bile ducts: No stones or inflammation. No biliary dilatation. Pancreas: Unremarkable. No mass or inflammation. Spleen: Normal in size. 5.5 centimeter cyst in the spleen. Adrenal glands: Normal in size. No nodules. Kidneys: 5 millimeter left proximal ureteral stone with mild hydronephrosis and hydroureter urothelial thickening. Delayed left nephrogram. Low-attenuation lesions the left kidney may represent cysts. GI tract: Gastric bypass changes. Normal appendix. Vasculature: Abdominal aorta is normal in caliber. Lymph nodes: No lymphadenopathy. Peritoneum/Abdominal Wall: Moderate umbilical fat containing hernia Pelvis: Urinary bladder decompressed with wall thickening nonobstructing left renal calculus. Lumbar spondylosis. IMPRESSION: 1. Mild left hydronephrosis and hydroureter with a 5 millimeter left proximal ureteral stone. Delayed nephrogram. Urothelial enhancement. Superimposed infection not excluded. Decompressed urinary bladder wall thickening slight persistent stranding correlate for possible cystitis Please note that all CT scans at this facility use dose modulation, iterative reconstruction, and/or weight-based dosing when appropriate to reduce radiation dose to as low as reasonably achievable. Dictated by Iva Goldman MD @ 10/02/2024 3:12:27 PM (Electronically Signed)
[2024-10-02 13:28] LABS: Hematocrit 42.7 % (33.0-51.0); Hemoglobin* 13.3 gm/dL (12.0-16.0); Immature Granulocytes Abs Auto 0.01 K/uL (0.00-0.30); Immature Granulocytes Pct Auto 0.1 %; Lymphocytes Absolute Auto 1.60 K/uL (0.90-2.90); Mean Corpuscular HGB Conc 31 gm/dL (32-36); Mean Corpuscular Hemoglobin 28 pg (26-34); Mean Corpuscular Volume 89 fL (80-100); RDW Coefficient of Variation % 15.5 % (11.5-15.5); Red Blood Count 4.82 m/uL (4.00-5.20); White Blood Count* 8.81 K/uL (4.50-11.00)
[2024-10-02 13:33] LABS: Lactate* 1.0 mmol/L (0.5-1.9)
[2024-10-02 13:34] LABS: Slide Review Reflex No
[2024-10-02] MEDS: 0.9 % SODIUM CHLORIDE 250 ml 250 ML IV (13:44)
[2024-10-02] MEDS: ONDANSETRON 2 MG/ML inj 4 MG IVP (13:45)
[2024-10-02] MEDS: MORPHINE 4 MG/ML INJ IVP (13:47)
[2024-10-02 14:00] LABS: Albumin* 4.4 g/dL (3.3-5.0); Chloride* 100 mmol/L (96-114); Potassium* 4.6 mmol/L (3.6-5.1); Sodium* 141 mmol/L (135-149)
[2024-10-02 14:00] LABS: Appearance Urine Cloudy (Clear)
[2024-10-02 14:03] LABS: Alanine Aminotransferase* 18 U/L (4-35); Alkaline Phosphatase* 91 U/L (40-150); Anion Gap 7 mEq/L (7-15); Aspartate Amino Transferase* 26 U/L (12-35); Bilirubin Total* 0.7 mg/dL (0.1-1.5); Blood Urea Nitrogen* 20 mg/dL (7-30); Carbon Dioxide* 34 mmol/L (20-32); Creatinine* 0.9 mg/dL (0.5-1.5); Est. Creatinine Clearance* 55.27; Estimated Glomerular Filt Rate 71 ml/min; Total Protein* 7.7 g/dL (6.0-8.3)
[2024-10-02 14:04] LABS: Calcium* 9.7 mg/dL (8.4-10.6); Glucose* 105 mg/dL (60-115)
[2024-10-02] MEDS: cefTRIAXone 1 GM in 0.9 % SODIUM CHLORIDE Mini-bag 100 ML IVPB (15:29)
== END 2024-10-02 16:44 | disposition short-term general hospital (02) ==
PROVIDERS: Emergency Provider Family Medicine; PCP Family Medicine
DX: N39.0 Urinary tract infection, site not specified (principal); N23 Unspecified renal colic
CPT/HCPCS: 36415; 74177; 80053; 81001; 83605; 83690; 85025; 86140; 87086; 94761; 96365; 96375; 99284; 99285; J0696; J1171; J2270; J2405; J7050; Q9967

== ENCOUNTER 2024-10-02 16:23 | Outpatient (CLI) | payer OTHER, SELFPAY | END 2024-10-02 16:24 | disposition home or self-care (01) | LOC: AMB 10-03 16:49 | PROVIDERS: PCP Family Medicine; Visit Provider Student in an Organized Health Care Education/Training Program | DX: N13.2 Hydronephrosis with renal and ureteral calculous obstruction (principal) | CPT/HCPCS: A0425; A0427 ==

== ENCOUNTER 2024-12-02 06:51 | Outpatient (CLI) | payer OTHER, SELFPAY ==
--- NOTE | 2024-12-02 08:30 | P.ANES_ITS ---
Anesthesia Charges Start Date/Time Anesthesia Start Date: 12/02/24 Anesthesia Start Time: 07:50 Stop Date/Time Anesthesia Stop Date: 12/02/24 Anesthesia Stop Time: 08:27 Coding CPT Codes CPT Codes: ANES LWR INTST NDSC NOS - 72948 ([id number]) P3 - PATIENT W/SEVERE SYS DISEASE, QX - MARKET RESEARCH WORKER MERARI W/ MED DIRECTION, QY - MEDICALLY DIRECTED MARKET RESEARCH WORKER
--- NOTE | 2024-12-02 08:30 | W.ANESCHARGE ---
Anesthesia Charges Start Date/Time Anesthesia Start Date: 12/02/24 Anesthesia Start Time: 07:50 Stop Date/Time Anesthesia Stop Date: 12/02/24 Anesthesia Stop Time: 08:27 Coding CPT Codes CPT Codes: ANES LWR INTST NDSC NOS - 22097 ([id number]) P3 - PATIENT W/SEVERE SYS DISEASE, QX - DUST CONTROL ENGINEER MERARI W/ MED DIRECTION, QY - MEDICALLY DIRECTED DUST CONTROL ENGINEER
--- NOTE | 2024-12-02 08:31 | P.ANES_ITS ---
Anesthesia Charges Start Date/Time Anesthesia Start Date: 12/02/24 Anesthesia Start Time: 07:50 Stop Date/Time Anesthesia Stop Date: 12/02/24 Anesthesia Stop Time: 08:27 Coding CPT Codes CPT Codes: ANES LWR INTST NDSC NOS - 09429 ([id number]) P3 - PATIENT W/SEVERE SYS DISEASE, QK - WASTE WATER OPERATOR 2-4 CNCRNT ANES PROC, QX - IT SOLUTIONS ARCHITECT SVC W/ MD MED DIRECTION
--- NOTE | 2024-12-02 08:31 | W.ANESCHARGE ---
Anesthesia Charges Start Date/Time Anesthesia Start Date: 12/02/24 Anesthesia Start Time: 07:50 Stop Date/Time Anesthesia Stop Date: 12/02/24 Anesthesia Stop Time: 08:27 Coding CPT Codes CPT Codes: ANES LWR INTST NDSC NOS - 85200 ([id number]) P3 - PATIENT W/SEVERE SYS DISEASE, QK - CARDROOM WORKER 2-4 CNCRNT ANES PROC, QX - BIOMASS POWER PLANT SUPERINTENDENT SVC W/ MD MED DIRECTION
== END 2024-12-02 06:52 | disposition home or self-care (01) ==
LOC: OP CLINIC 06:51
PROVIDERS: PCP Family Medicine; Visit Provider Internal Medicine Gastroenterology
DX: Z12.11 Encounter for screening for malignant neoplasm of colon (principal); D12.3 Benign neoplasm of transverse colon
CPT/HCPCS: 00811; 00812; 45385; 88305; J2704